=== PATIENT | female | born 1995 | race Hispanic/Latino ===

== ENCOUNTER 2019-07-07 15:04 | Emergency (ER) | payer BC, SELFPAY ==
[2019-07-07 15:47] LABS: Urine Blood 3+ (NEG); Urine Glucose NEGATIVE (NEG); Urine Protein 1+ (NEG); Urine pH 6.5 (5.0-7.0)
[2019-07-07 16:01] LABS: Barbiturates NEGATIVE (NEGATIVE); Benzodiazepines NEGATIVE (NEGATIVE); Cocaine NEGATIVE (NEGATIVE); METHAMPHETAM NEGATIVE (NEGATIVE); Methadone NEGATIVE (NEGATIVE); Opiates NEGATIVE (NEGATIVE); Phencyclidine NEGATIVE (NEGATIVE); THC Cannibis POSITIVE (NEGATIVE)
[2019-07-07] MEDS ORDERED: FAMOTIDINE 20 MG/2 ML VIAL IV ONE (16:15)
[2019-07-07] MEDS ORDERED: LORazepam 2 MG/ML VIAL ONE (16:15)
[2019-07-07] MEDS ORDERED: NA CHLORIDE 0.9% 2,000 ML ONE (16:15)
[2019-07-07] MEDS ORDERED: ONDANSETRON 4 MG/2 ML VIAL ONE (16:15)
[2019-07-07 16:50] LABS: Absolute Lymphocytes (CBC) 1.3 K/uL (0.7-4.9); Basophils % 0.3 % (0-1.3); Hematocrit 40.9 % (36.0-45.0); Lymphocytes % 7.7 % (15.3-44.8); MPV 8.7 fL (7.6-11.3); RBC Red Blood Cell Count 4.55 M/uL (3.86-4.86)
[2019-07-07 17:07] LABS: Albumin 4.2 g/dL (3.4-5.0); Bilirubin Direct 0.2 mg/dL (0-0.2); Bilirubin Total 0.8 mg/dL (0.2-1.0); Potassium 3.6 mmol/L (3.5-5.1); Protein, Total 8.6 g/dL (6.4-8.2)
[2019-07-07 17:25] LABS: Blood Morphology Comment NOT SEEN (NOT SEEN); Platelet Estimate ADEQ; White Blood Cell Scan OK
--- NOTE | 2019-07-07 17:51 | RAD REPORT ---
EXAM DESCRIPTION: CTAbdomen Pelvis W Contrast - 07/07/2019 5:38 pm CLINICAL HISTORY: Abdominal pain. ABD PAIN COMPARISON: No comparisons TECHNIQUE: Biphasic CT imaging of the abdomen and pelvis was performed with 100 ml non-ionic IV cont rast. All CT scans are performed using dose optimization technique as appropriate and may include automated exposure control or mA/KV adjustment according to patient size. FINDINGS: The lung bases are clear. The liver, spleen, pancreas, adrenal glands and kidneys are within normal limits. No bowel obstruction, free air, free fluid or abscess. The appendix is normal. No evidence of signi ficant lymphadenopathy. No suspicious bony findings. IMPRESSION: No acute intra-abdominal or pelvic finding.
--- NOTE | 2019-07-07 18:20 | RAD REPORT ---
EXAM DESCRIPTION: RAD - Chest Single View - 07/07/2019 6:11 pm CLINICAL HISTORY: ABDOMINAL DISTENTION Chest pain. COMPARISON: No comparisons FINDINGS: Portable technique limits examination quality. The lungs are grossly clear. The heart is normal in size. No displaced fractures. IMPRESSION: No acute intrathoracic process suspected.
--- NOTE | 2019-07-07 18:33 | EDPHYS ---
Physician Documentation [facility] Name: Johanne Carter Age: 24 yrs Sex: Female : 1995 Arrival Date: 07/07/2019 Time: 15:07 Bed 23 Private MD: ED Physician Jean Pierre HPI: 15:29 This 24 yrs old Female presents to ER via Ambulatory with complaints of mele Vomiting. 15:29 The patient presents to the emergency department with nausea. Onset: The emle symptoms/episode began/occurred just prior to arrival, this morning. Possible causes: unknown. The symptoms are aggravated by nothing. The symptoms are alleviated by nothing. Associated signs and symptoms: The patient has no apparent associated signs or symptoms. Severity of symptoms: At their worst the symptoms were mild moderate in the emergency department the symptoms are unchanged. The patient has not experienced similar symptoms in the past. 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 - Social history:: Smoking status: Patient/guardian denies using tobacco. - Family history:: not pertinent. ROS: 15:29 Constitutional: Negative for fever, chills, and weight loss, Eyes: Negative for injury, mele pain, redness, and discharge, ENT: Negative for injury, pain, and discharge, Neck: Negative for injury, pain, and swelling, Cardiovascular: Negative for chest pain, palpitations, and edema, Respiratory: Negative for shortness of breath, cough, wheezing, and pleuritic chest pain, Back: Negative for injury and pain, : Negative for injury, bleeding, discharge, and swelling, MS/Extremity: Negative for injury and deformity, Skin: Negative for injury, rash, and discoloration, Neuro: Negative for headache, weakness, numbness, tingling, and seizure, Psych: Negative for depression, anxiety, suicide ideation, homicidal ideation, and hallucinations, Allergy/Immunology: Negative for hives, rash, and allergies, Endocrine: Negative for neck swelling, polydipsia, polyuria, polyphagia, and marked weight changes, Hematologic/Lymphatic: Negative for swollen nodes, abnormal bleeding, and unusual bruising. 15:29 Abdomen/GI: Positive for abdominal pain, nausea and vomiting. Exam: 15:29 Constitutional: This is a well developed, well nourished patient who is awake, alert, mele and in no acute distress. Head/Face: Normocephalic, atraumatic. Eyes: Pupils equal round and reactive to light, extra-ocular motions intact. Lids and lashes normal. Conjunctiva and sclera are non-icteric and not injected. Cornea within normal limits. Periorbital areas with no swelling, redness, or edema. ENT: Nares patent. No nasal discharge, no septal abnormalities noted. Tympanic membranes are normal and external auditory canals are clear. Oropharynx with no redness, swelling, or masses, exudates, or evidence of obstruction, uvula midline. Mucous membranes moist. Neck: Trachea midline, no thyromegaly or masses palpated, and no cervical lymphadenopathy. Supple, full range of motion without nuchal rigidity, or vertebral point tenderness. No Meningismus. Chest/axilla: Normal chest wall appearance and motion. Nontender with no deformity. No lesions are appreciated. Cardiovascular: Regular rate and rhythm with a normal S1 and S2. No gallops, murmurs, or rubs. Normal PMI, no JVD. No pulse deficits. Respiratory: Lungs have equal breath sounds bilaterally, clear to auscultation and percussion. No rales, rhonchi or wheezes noted. No increased work of breathing, no retractions or nasal flaring. Back: No spinal tenderness. No costovertebral tenderness. Full range of motion. Female : Normal external genitalia. Skin: Warm, dry with normal turgor. Normal color with no rashes, no lesions, and no evidence of cellulitis. MS/ Extremity: Pulses equal, no cyanosis. Neurovascular intact. Full, normal range of motion. Neuro: Awake and alert, GCS 15, oriented to person, place, time, and situation. Cranial nerves II-XII grossly intact. Motor strength 5/5 in all extremities. Sensory grossly intact. Cerebellar exam normal. Normal gait. Psych: Awake, alert, with orientation to person, place and time. Behavior, mood, and affect are within normal limits. 15:29 Abdomen/GI: Inspection: abdomen appears normal, Bowel sounds: normal, Palpation: mild abdominal tenderness, in all quadrants, Liver: no appreciated palpable abnormalities, Hernia: not appreciated. Vital Signs: 15:23 BP 122 / 83; Pulse 69; Resp 16; Temp 97.9; Pulse Ox 100% on R/A; Weight 63.5 kg (R); aj1 Height 5 ft. 2 in. (157.48 cm) (R); Pain 10/10; 16:30 BP 108 / 67; Pulse 54; Resp 18; Pulse Ox 100% ; aj1 17:16 BP 111 / 70; Pulse 65; Resp 16; Pulse Ox 100% on 2 lpm NC; aj1 17:49 BP 110 / 63; Pulse 66; Resp 16; Pulse Ox 100% on R/A; 1 18:45 BP 112 / 68; Pulse 62; Resp 16; Pulse Ox 100% on R/A; aj1 19:45 BP 116 / 82; Pulse 70; Resp 16; Pulse Ox 98% on R/A; [facility] 15:23 Body Mass Index 25.61 (63.50 kg, 157.48 cm) [facility] MDM: 15:18 Patient medically screened. [facility] 15:31 Data reviewed: vital signs, nurses notes, lab test result(s). [facility] 15:28 Order name: Basic Metabolic Panel; Complete Time: 17:13 [facility] 15:28 Order name: CBC with Diff; Complete Time: 18:32 [facility] 15:28 Order name: Creatinine for Radiology; Complete Time: 17:13 [facility] 15:28 Order name: Hepatic Function; Complete Time: 17:13 [facility] 15:28 Order name: Lipase; Complete Time: 17:13 [facility] 15:28 Order name: UDS; Complete Time: 16:16 [facility] 15:33 Order name: Urine Dipstick--Ancillary (enter results); Complete Time: 15:55 [facility] 15:33 Order name: Urine --Ancillary (enter results); Complete Time: 15:55 [facility] 17:13 Order name: Chest Single View XRAY; Complete Time: 18:32 [facility] 17:13 Order name: CT Abd/Pelvis - IV Contrast Only; Complete Time: 18:32 [facility] 17:26 Order name: CBC Smear Scan; Complete Time: 18:32 [facility] 15:28 Order name: IV Saline Lock; Complete Time: 16:04 [facility] 15:28 Order name: Labs collected and sent; Complete Time: 17:22 [facility] 16:02 Order name: Labs - recollect needed; Complete Time: 16:57 dh4 Administered Medications: 16:58 Drug: NS 0.9% 1000 ml Route: IV; Rate: 1 bolus; Site: left antecubital; aj1 19:53 Follow up: IV Status: Completed infusion; IV Intake: 1000ml aj1 16:59 Drug: Ativan 1 mg Route: IVP; Site: left antecubital; aj1 19:54 Follow up: Response: No adverse reaction; Anxiety decreased aj1 16:59 Drug: Zofran (Ondansetron) 4 mg Route: IVP; Site: left antecubital; aj1 19:54 Follow up: Response: No adverse reaction aj1 16:59 Drug: Pepcid 20 mg Route: IVP; Site: left antecubital; aj1 19:54 Follow up: Response: No adverse reaction aj1 17:00 Drug: NS 0.9% 1000 ml Route: IV; Rate: 1 bolus; Site: left antecubital; aj1 19:54 Follow up: IV Status: Completed infusion; IV Intake: 1000ml aj Disposition: 07/07/19 18:32 Discharged to Home. Impression: Vomiting, Anxiety disorder, unspecified, Elevated white blood cell count, Abdominal tenderness. - Condition is Stable. - Discharge Instructions: Panic Attacks, Nausea and Vomiting, Adult, Nausea and Vomiting, Adult, [id number]-th-[id number], Panic Attacks, [id number]-ir-[id number]. - Prescriptions for Xanax 0.5 mg Oral Tablet - take 1 tablet by ORAL route every 8 hours As needed; 20 tablet. Zofran 4 mg Oral Tablet - take 1 tablet by ORAL route every 12 hours As needed; 20 tablet. Pepcid 20 mg Oral Tablet - take 1 tablet by ORAL route every 12 hours for 10 days; 20 tablet. Bentyl 20 mg Oral Tablet - take 1 tablet by ORAL route every 6 hours As needed; 20 tablet. - Medication Reconciliation Form, Thank You Letter, Antibiotic Education, Prescription Opioid Use form. - Follow up: Private Physician; When: 2 - 3 days; Reason: Recheck today's complaints, Continuance of care, Re-evaluation by your physician. - Problem is new. - Symptoms have improved. Signatures: Dispatcher [employer] EDTeresa Mckeon RN RN aj1 Jean Pierre MD MD cha Huhn, Donald 4 Corrections: (The following items were deleted from the chart) 18:33 18:32 07/07/2019 18:32 Discharged to Home. Impression: Vomiting; Anxiety disorder, mele unspecified. Condition is Stable. Discharge Instructions: Panic Attacks, Nausea and Vomiting, Adult, Nausea and Vomiting, Adult, Pswn-wo-Cplh, Panic Attacks, Cspr-th-[id number]. Prescriptions for Benadryl 25 mg Oral Capsule - take 1 capsule by ORAL route every 6 hours As needed; 30 tablet, Xanax 0.5 mg Oral Tablet - take 1 tablet by ORAL route every 8 hours As needed; 20 tablet, Zofran 4 mg Oral Tablet - take 1 tablet by ORAL route every 12 hours As needed; 20 tablet, Pepcid 20 mg Oral Tablet - take 1 tablet by ORAL route every 12 hours for 10 days; 20 tablet. and Forms are Medication Reconciliation Form, Thank You Letter, Antibiotic Education, Prescription Opioid Use. Follow up: Private Physician; When: 2 - 3 days; Reason: Recheck today's complaints, Continuance of care, Re-evaluation by your physician. Problem is new. Symptoms have improved. mele 20:10 18:33 07/07/2019 18:32 Discharged to Home. Impression: Vomiting; Anxiety disorder, aj1 unspecified; Elevated white blood cell count; Abdominal tenderness. Condition is Stable. Discharge Instructions: Panic Attacks, Nausea and Vomiting, Adult, Nausea and Vomiting, Adult, [id number], Panic Attacks, Bwxq-tx-[id number]. Prescriptions for Benadryl 25 mg Oral Capsule - take 1 capsule by ORAL route every 6 hours As needed; 30 tablet, Xanax 0.5 mg Oral Tablet - take 1 tablet by ORAL route every 8 hours As needed; 20 tablet, Zofran 4 mg Oral Tablet - take 1 tablet by ORAL route every 12 hours As needed; 20 tablet, Pepcid 20 mg Oral Tablet - take 1 tablet by ORAL route every 12 hours for 10 days; 20 tablet. and Forms are Medication Reconciliation Form, Thank You Letter, Antibiotic Education, Prescription Opioid Use. Follow up: Private Physician; When: 2 - 3 days; Reason: Recheck today's complaints, Continuance of care, Re-evaluation by your physician. Problem is new. Symptoms have improved. mele
--- NOTE | 2019-07-07 18:33 | ER ---
Nurse's Notes [facility] Name: Johanne Carter Age: 24 yrs Sex: Female : 1995 Arrival Date: 07/07/2019 Time: 15:07 Bed 23 Private MD: Diagnosis: Vomiting;Anxiety disorder, unspecified;Elevated white blood cell count;Abdominal tenderness Presentation: 15:23 Chief complaint: Patient states: She was on her period yesterday, then she started aj1 vomiting at 6:00 and her period stopped, states that she has been vomiting since then, and she thinks the last time she vomited blood and she pooped blood once and she has had 3 panic attacks today. Also reports abdominal pain that comes and goes and hurts in different places in her abdomen when it comes. Coronavirus screen: The patient has NOT traveled to [place] in the past 14 days. Ebola Screen: Patient denies travel to an Ebola-affected area in the 21 days before illness onset. Initial Sepsis Screen: Does the patient meet any 2 criteria? No. Patient's initial sepsis screen is negative. Does the patient have a suspected source of infection? Yes: Acute abdominal pain. Risk Assessment: Do you want to hurt yourself or someone else? Patient reports no desire to harm self or others. 15:23 Method Of Arrival: Ambulatory aj1 15:23 Acuity: NATALIYA 3 aj1 Triage Assessment: 15:26 General: Appears uncomfortable, Behavior is anxious, restless. Pain: Complains of pain aj1 in abdomen Pain currently is 10 out of 10 on a pain scale. GI: Reports lower abdominal pain, upper abdominal pain, nausea, vomiting. 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 - Social history:: Smoking status: Patient/guardian denies using tobacco. - Family history:: not pertinent. Screenin:27 Abuse screen: Denies threats or abuse. Denies injuries from another. Nutritional aj1 screening: No deficits noted. Tuberculosis screening: No symptoms or risk factors identified. 20:07 Fall Risk None identified. aj1 Assessment: 15:27 General: Appears uncomfortable, Behavior is anxious. Pain: Complains of pain in abdomen aj1 Pain does not radiate. Pain currently is 10 out of 10 on a pain scale. Neuro: Level of Consciousness is awake, alert, obeys commands, Oriented to person, place, time, situation. Cardiovascular: Patient's skin is warm and dry. Respiratory: Airway is patent Respiratory effort is even, unlabored, Respiratory pattern is regular, symmetrical. GI: Abdomen is flat, non-distended, Bowel sounds present X 4 quads. Abd is soft X 4 quads Abdomen is tender to palpation X 4 quads. Reports nausea, vomiting. : No signs and/or symptoms were reported regarding the genitourinary system. EENT: No signs and/or symptoms were reported regarding the EENT system. Derm: No signs and/or symptoms reported regarding the dermatologic system. Skin is pink, warm \T\ dry. normal. Musculoskeletal: No signs and/or symptoms reported regarding the musculoskeletal system. Circulation, motion, and sensation intact. 16:30 Reassessment: Patient appears in no apparent distress at this time. No changes from aj1 previously documented assessment. Patient and/or family updated on plan of care and expected duration. Pain level reassessed. Patient is alert, oriented x 3, equal unlabored respirations, skin warm/dry/pink. 17:17 Reassessment: Patient appears in no apparent distress at this time. No changes from aj1 previously documented assessment. Patient and/or family updated on plan of care and expected duration. Pain level reassessed. Patient is alert, oriented x 3, equal unlabored respirations, skin warm/dry/pink. 17:49 Reassessment: Patient appears in no apparent distress at this time. No changes from aj1 previously documented assessment. Patient and/or family updated on plan of care and expected duration. Pain level reassessed. Patient is alert, oriented x 3, equal unlabored respirations, skin warm/dry/pink. 18:50 Reassessment: Patient and/or family updated on plan of care and expected duration. Pain aj1 level reassessed. General: Appears in no apparent distress. comfortable, Behavior is calm, cooperative, appropriate for age. Pain: Denies pain. Neuro: Level of Consciousness is awake, alert, obeys commands, Oriented to person, place, time, situation. Cardiovascular: Patient's skin is warm and dry. Respiratory: Airway is patent Respiratory effort is even, unlabored, Respiratory pattern is regular, symmetrical. Derm: Skin is pink, warm \T\ dry. normal. Musculoskeletal: Circulation, motion, and sensation intact. 19:56 Reassessment: Patient appears in no apparent distress at this time. No changes from aj1 previously documented assessment. Patient and/or family updated on plan of care and expected duration. Pain level reassessed. Patient is alert, oriented x 3, equal unlabored respirations, skin warm/dry/pink. Vital Signs: 15:23 BP 122 / 83; Pulse 69; Resp 16; Temp 97.9; Pulse Ox 100% on R/A; Weight 63.5 kg (R); aj1 Height 5 ft. 2 in. (157.48 cm) (R); Pain 10/10; 16:30 BP 108 / 67; Pulse 54; Resp 18; Pulse Ox 100% ; aj1 17:16 BP 111 / 70; Pulse 65; Resp 16; Pulse Ox 100% on 2 lpm NC; aj1 17:49 BP 110 / 63; Pulse 66; Resp 16; Pulse Ox 100% on R/A; aj1 18:45 BP 112 / 68; Pulse 62; Resp 16; Pulse Ox 100% on R/A; aj1 19:45 BP 116 / 82; Pulse 70; Resp 16; Pulse Ox 98% on R/A; aj1 15:23 Body Mass Index 25.61 (63.50 kg, 157.48 cm) aj1 ED Course: 15:07 Patient arrived in ED. mr 15:18 Jean Pierre MD is Attending Physician. mele 15:23 Teresa Sanchez, BRANDY is Primary Nurse. aj1 15:25 Triage completed. aj1 15:26 Arm band placed on. aj1 15:27 Patient has correct armband on for positive identification. Bed in low position. Call [facility] light in reach. Side rails up X 1. 15:27 No provider procedures requiring assistance completed. aj1 16:03 Inserted saline lock: 22 gauge in left upper arm, using aseptic technique. jb1 17:37 CT completed. Patient tolerated procedure well. Patient moved to radiology. mw3 17:38 CT Abd/Pelvis - IV Contrast Only In Process Unspecified. EDMS 18:12 Chest Single View XRAY In Process Unspecified. EDMS 19:55 IV discontinued, intact, bleeding controlled, No redness/swelling at site. Pressure aj1 dressing applied. Administered Medications: 16:58 Drug: NS 0.9% 1000 ml Route: IV; Rate: 1 bolus; Site: left antecubital; aj1 19:53 Follow up: IV Status: Completed infusion; IV Intake: 1000ml aj1 16:59 Drug: Ativan 1 mg Route: IVP; Site: left antecubital; aj1 19:54 Follow up: Response: No adverse reaction; Anxiety decreased aj1 16:59 Drug: Zofran (Ondansetron) 4 mg Route: IVP; Site: left antecubital; aj1 19:54 Follow up: Response: No adverse reaction aj1 16:59 Drug: Pepcid 20 mg Route: IVP; Site: left antecubital; aj1 19:54 Follow up: Response: No adverse reaction aj1 17:00 Drug: NS 0.9% 1000 ml Route: IV; Rate: 1 bolus; Site: left antecubital; aj1 19:54 Follow up: IV Status: Completed infusion; IV Intake: 1000ml aj1 Intake: 19:53 IV: 1000ml; Total: 1000ml. aj1 19:54 IV: 1000ml; Total: 2000ml. aj1 Outcome: 18:32 Discharge ordered by . mele 20:09 Discharged to home ambulatory. aj1 20:09 Condition: good 20:09 Discharge instructions given to patient, Instructed on discharge instructions, follow up and referral plans. no drinking with medication, no driving heavy equipment, medication usage, Demonstrated understanding of instructions, follow-up care, medications, Prescriptions given X 4. 20:10 Patient left the ED. aj1 Signatures: Dispatcher [employer] EDGary Cook jb1 Teresa Sanchez, BRANDY RN aj1 Jean Pierre MD MD cha Rivera, Tsering Lincoln mw3
[2019-07-07 20:18] VITALS: TEMP 97.9
[2019-07-07 20:25] VITALS: BP 116/82; O2SAT 98
[2019-07-07] MEDS ORDERED: NA CHLORIDE 0.9% 0 ML IV ONE ×2 (21:44→21:48)
[2019-07-07] MEDS ORDERED: PROMETHAZINE INJ 25 MG/ML AMP ONE ×2 (21:44→21:47)
== END 2019-07-07 20:10 | disposition home or self-care (01) ==
LOC: ER 15:04
DX: F41.9 Anxiety disorder, unspecified (principal); D72.829 Elevated white blood cell count, unspecified; R10.819 Abdominal tenderness, unspecified site; Z91.018 Allergy to other foods
CPT/HCPCS: 96361; 85025; 80048; 36415; 81025; 80076; 80307 ×8; 81003; 83690; 74177; 71045; 96375; 96374; 99284; Q9967; J7030; J2405; J2550

== ENCOUNTER 2020-09-13 10:04 | Inpatient (IN) | payer BC, OTHER ==
[2020-09-13 10:37] VITALS: BMI 37.1
[2020-09-13] MEDS ORDERED: PROMETHAZINE INJ 25 MG/ML AMP IM PRN (10:40)
[2020-09-13] MEDS ORDERED: Ringers Lactate 1,000 ML IV PRN (10:40)
[2020-09-13] MEDS ORDERED: BUTORPHANOL 1 MG/ML INJ IV PRN (10:40)
[2020-09-13] MEDS ORDERED: CARBOPROST TROME 250 MCG/ML IM PRN ×2 (10:40→17:46)
[2020-09-13] MEDS ORDERED: METHYLERGONOVINE 0.2MG/ML AMP IM PRN (10:40)
[2020-09-13] MEDS ORDERED: OXYTOCIN/LR 20 UNIT/1,000 ML BAG IV ONE (10:49)
[2020-09-13] MEDS ORDERED: OXYTOCIN/LR 20 UNIT/1,000 ML BAG IV SCH ×2 (11:00→18:00)
[2020-09-13] MEDS ORDERED: LR IV SCH (11:00)
[2020-09-13] MEDS ORDERED: Ringers Lactate 1,000 ML IV SCH (11:00)
[2020-09-13] MEDS ORDERED: OXYTOCIN IV SCH (11:00)
[2020-09-13 11:14] LABS: Urine Appearance CLOUDY (Clear); Urine Bilirubin NEGATIVE (Negataive); Urine Blood 2+ (Negative); Urine Color YELLOW (Yellow); Urine Glucose NEGATIVE (Negative); Urine Microscopic Reflex ORDER UMIC; Urine Protein TRACE (Negative); Urine Specific Gravity >=1.030 (1.005-1.030); Urine Urobilinogen 0.2 mg/dL (0.2-1.0)
[2020-09-13 11:21] LABS: Urine Bacteria >50 /HPF (<20); Urine RBC <5 /HPF (NONE SEEN); Urine Yeast MANY (NONE SEEN); Urine Yeast with Hyphae PRESENT
[2020-09-13 11:28] LABS: Absolute Lymphocytes (CBC) 2.6 K/uL (0.7-4.9); Basophils % 0.4 % (0-1.3); Hematocrit 35.2 % (36.0-45.0); Lymphocytes % 15.9 % (15.3-44.8); MPV 9.7 fL (7.6-11.3); RBC Red Blood Cell Count 3.84 M/uL (3.86-4.86)
[2020-09-13 12:03] LABS: Blood Morphology Comment NOT SEEN (NOT SEEN); Platelet Estimate ADEQ; White Blood Cell Scan OK (OK)
[2020-09-13] MEDS ORDERED: ROPIVACAINE HCL 0.2% 20ML AMP EP ONE ×2 (12:34→13:22)
[2020-09-13] MEDS ORDERED: FENTANYL CITR 100 MCG/2 ML IV ONE (12:36)
[2020-09-13] MEDS ORDERED: HYDRALAZINE HCL 20 MG/ML VIAL IV ONE (12:37)
[2020-09-13] MEDS ORDERED: MAGNESIUM SULF/STERILE WATER 1,000 ML IV SCH (13:00)
[2020-09-13] MEDS ORDERED: LIDOCAINE 1% MPF 30 ML VIAL ONE (17:02)
--- NOTE | 2020-09-13 17:04 | PREOPHP ---
Date of Admission: 09/13/2020 History Of Present Illness: 25-year-old primigravida 39 weeks 5 days, kishore every minute and a half or so. She is 2.5 cm, 50% effaced, vertex, -1 station, well applied. Membranes stretched, but I can still feel them. Vital signs stable. We will admit for stabilization and delivery. Labor ta lk given. Family History: Noncontributory. No previous surgeries. Allergies: NO ALLERGIES. Medications: No medications prior to admission other than vitamins and iron. Review of Systems: Noncontributory. Physical Examination: HEENT: Clear. Pupils equal, round, and reactive to light and accommodation. Conjunctivae well perf used. No oral, lingual, or buccal lesions. Chest and Lungs: Clear. Heart: Without murmurs, thrills, heaves, or rubs. Breasts: Without masses on previous visits. Abdomen: Term size. Baby is vertex, 2.5 cm, 50%, well applied. Extremities: Clear without edema, cyanosis, or clubbing. Primigravida 39 weeks 5 days, and in early labor. HERNESTO/LESLI Voice ID: [id number]
--- NOTE | 2020-09-13 17:13 | PN ---
The patient is on light Pitocin, kishore regularly. Baby looks good. She is about 3 cm, still p osterior. Rupture of membranes, light meconium noted. Full discussion with patient and . Jerson sanchez is a very high strung individual. I think that when she starts becoming uncomfortable at the point she requests medication, we will probably start with Stadol and then I assume she will get an epidur al as the labor progresses, but that is up to her of course. Anticipate delivery sometime later tatum siddiqui Labor talk has been given. HERNESTO/LESLI Voice ID: [id number] Report ID: [id number]
[2020-09-13] MEDS ORDERED: ACETAMINOPHEN 500 MG TAB PO PRN (17:46)
[2020-09-13] MEDS ORDERED: Oxycodone HCl/Acetaminophen 1 TAB TAB PO PRN ×2 (17:46)
[2020-09-13] MEDS ORDERED: DIPHENHYDRAMINE 25 MG TAB/CAP PO PRN (17:46)
[2020-09-13] MEDS ORDERED: IBUPROFEN 200 MG TAB PO PRN (17:46)
[2020-09-13] MEDS ORDERED: BISACODYL 10 MG RECTAL SUPP PR PRN (17:46)
[2020-09-13] MEDS ORDERED: DOCUSATE NA/SENNA CONC 1 TAB PO PRN (17:46)
--- NOTE | 2020-09-13 20:34 | PN ---
Johanne Carter is a 25-year-old primigravida, had elevations of her systolic blood pressure to 16 5, diastolic to about 100, trace protein, has mild edema, no ARC TRIMMER symptoms, but was started on magnesi um sulfate 4 g loading dose, 2 g an hour maintenance dose, had 1 mg of Stadol IV, 25 mg of Phenergan IM, but then reported her pain scale was 10/10 and epidural anesthesia has been started. She is prof oundly numb and cannot feel contractions or move her legs adequately. Therefore, we have returned ba ck to maintenance dose from 12 to 10 and down to 8 and she is still completely numb. She was checked about 20 minutes ago and noted to be 4 and now she is 8.5 with edematous anterior lip and bloody ricarda w. Anticipate more rapid progress at this point, making preparations for delivery. HERNESTO/LESLI Voice ID: [id number] Report ID: [id number]
--- NOTE | 2020-09-13 20:52 | OP ---
Surgeon: Paolo Ventura MD Johanne Carter is a 25-year-old primigravida at 39 weeks 5 days, came in early labor, started on Pitocin augmentation. Beta strep negative. COVID negative. Rh positive. Immune to Rubella. Recei stella Stadol 1 mg IV, Phenergan 25 mg IM at 3+ cm, rated her pain scale 10/10, requested and received e pidural anesthesia. Rupture of membranes at 2.5 to 3 cm and light meconium noted. Baby showed no pr oblems during the labor. Second stage of about 30 minutes. Spontaneous vaginal delivery of a 7 poun ds 11 ounces male infant. Thorough suction of nares and oropharynx with DeLee mucus suction trap and bulb syringe. No suspicion of aspiration. Apgars 9 and 9. Second-degree laceration simulating epi siotomy repaired with 2-0 chromic 2 [id number] stitches on the right side of the introitus. It is a small little mucosal tear area. Mild [place] delivery of placenta, which is stained with meconiu m, will be saved for 24 hours, but baby looks good. Mild uterine hypertonus. Hemabate given as the patient developed mild preeclampsia during the labor, was given 4 g of magnesium sulfate 2 g an hour maintenance dose. Blood pressures have come down though into the normal range. We will discontinue the magnesium sulfate and start her on phenobarbital for the remainder of the hospital stay. Estimat ed blood loss 400 to 425 cc. Tolerated all procedures well. Final Diagnoses: Term intrauterine at 39 weeks 5 days. Vaginal delivery. Epidural anesth esia. Preeclampsia - mild. Mild uterine hypotonus. Meconium staining. No suspicion of aspiration. NBC/MODL Voice ID: [id number] Report ID: [id number]
[2020-09-14] MEDS: PHENOBARBITAL 32.4 MG TABLET PO SCH ×4 (00:30→12:30)
--- NOTE | 2020-09-14 10:53 | DS ---
Hospital Course: A 25-year-old, primigravida, at 39 weeks 5 days, came in active labor with rupture of membranes, noted to have mild meconium staining. Thorough suctioning of nares and oropharynx with DeLee mucus suction trap at time of delivery. No suspicion of aspiration. Received 1 mg of Stadol and 25 mg of Phenergan initially, then epidural anesthesia. Second stage of about 30 minutes. Spont aneous vaginal delivery, 7 pounds 11 ounces male infant, Apgars 9 and 9. Midline second-degree lacer ation simulating episiotomy repaired with 2-0 chromic. The patient is Rh positive, immune to rubella , negative Strep, negative COVID. afebrile, ambulating and voiding. Lochia is normal. S he will be dismissed later today to report back to my office in 6 weeks for followup to report any te mperature elevation of 100 degrees or greater, severe pain, heavy bleeding, or any other type of abno rmalities. No post epidural problems. We discussed Tdap numerous times during the . Final Diagnoses: Term intrauterine at 39 weeks 5 days, vaginal delivery, meconium staining , no suspicion of aspiration, epidural anesthesia, mild uterine hypotonus. HERNESTO/LESLI Voice ID: [id number] Report ID: [id number]
[2020-09-14 15:56] VITALS: BP 122/74; TEMP 97.3
[2020-09-14] MEDS ORDERED: Ringers Lactate 1,000 ML IV ONE (20:40)
[2020-09-14 23:01] LABS: RPR (Rapid Plasma Reagin) NON-REACT (NON-REACT)
[2020-09-16 18:06] LABS: HBsAG Nonreactive (Nonreactive)
== END 2020-09-14 19:15 | disposition home or self-care (01) | DRG 807 ==
LOC: L&D 10:04 → 2ND-WC 10:15
PROVIDERS: ADMIT Specialist; ATTEND Specialist
PROC: 10907ZC Drainage of Amniotic Fluid, Therapeutic from Products of Conception, Via Natural or Artificial Opening (ICD-10-PCS; principal; 2020-09-13)
PROC: 10E0XZZ Delivery of Products of Conception, External Approach (ICD-10-PCS; 2020-09-13)
PROC: 0KQM0ZZ Repair Perineum Muscle, Open Approach (ICD-10-PCS; 2020-09-13)
DX: O14.04 Mild to moderate pre-eclampsia, complicating childbirth (principal); Z37.0 Single live birth; O62.2 Other uterine inertia; O70.1 Second degree perineal laceration during delivery; Z3A.39 39 weeks gestation of pregnancy; Z20.822 Contact with and (suspected) exposure to COVID-19
CPT/HCPCS: 36415; 81003; 81015; 85025; 86592; 86901; 87086; 87088; 87340; J0595; J2550; J2590; J3010; J3475; J7120; U0003

== ENCOUNTER 2021-10-11 09:58 | Emergency (ER) | payer BC, OTHER ==
[2021-10-11] MEDS ORDERED: ONDANSETRON 4 MG/2 ML VIAL ONE (10:34)
[2021-10-11] MEDS ORDERED: NA CHLORIDE 0.9% 1,000 ML ONE (10:35)
[2021-10-11] MEDS ORDERED: KETOROLAC 30 MG/ML INJ ONE (10:35)
[2021-10-11 10:39] LABS: Urine Blood 2+ (Negative); Urine Glucose Negative (Negative); Urine Protein Negative (Negative); Urine Specific Gravity >=1.030 (1.005-1.030); Urine pH 5.5 (5.0-7.0)
[2021-10-11 10:57] LABS: Absolute Lymphocytes (CBC) 3.5 K/uL (0.7-4.9); Hematocrit 36.5 % (36.0-45.0); Lymphocytes % 30.2 % (15.3-44.8); MPV 7.6 fL (7.6-11.3); RBC Red Blood Cell Count 4.17 M/uL (3.86-4.86)
[2021-10-11 11:12] LABS: Albumin 3.6 g/dL (3.4-5.0); Bilirubin Total 0.3 mg/dL (0.2-1.0); Potassium 3.8 mmol/L (3.5-5.1)
--- NOTE | 2021-10-11 11:27 | RAD REPORT ---
EXAM DESCRIPTION: RAD - Chest Pa And Lat (2 Views) - 10/11/2021 10:59 am CLINICAL HISTORY: CHEST PAIN Chest pain. COMPARISON: Chest Single View dated 07/07/2019 FINDINGS: The lungs are clear. The heart is normal in size. No displaced fractures. IMPRESSION: No acute or concerning finding suspected.
--- NOTE | 2021-10-11 11:42 | RAD REPORT ---
EXAM DESCRIPTION: CT - Chest For Pe Angio - 10/11/2021 11:32 am CLINICAL HISTORY: Chest pain. cp COMPARISON: No comparisons TECHNIQUE: CT angiogram of the pulmonary arteries was performed with MIP. All CT scans are performed using dose optimization technique as appropriate and may include automated exposure control or mA/KV adjustment according to patient size. FINDINGS: No evidence of pulmonary thromboembolism. No acute aortic finding demonstrated. The lungs are clear. No significant pericardial or pleural fluid. No concerning bony finding. IMPRESSION: No evidence of pulmonary thromboembolism. No acute lung findings.
--- NOTE | 2021-10-11 11:58 | ER ---
Nurse's Notes [facility] Name: Johanne Carter Age: 26 yrs Sex: Female : 1995 Arrival Date: 10/11/2021 Time: 10:00 Bed 15 Private MD: Diagnosis: Chest pain on breathing Presentation: 10/11 10:11 Chief complaint: Patient states: chest pain that began last night. Worse when taking a ss deep breath. Denies cough/ fever/ feeling ill. Coronavirus screen: Client denies travel out of the [place] in the last 14 days. Ebola Screen: Patient denies exposure to infectious person. Patient denies travel to an Ebola-affected area in the 21 days before illness onset. Initial Sepsis Screen: Does the patient meet any 2 criteria? No. Patient's initial sepsis screen is negative. Does the patient have a suspected source of infection? No. Patient's initial sepsis screen is negative. Risk Assessment: Do you want to hurt yourself or someone else? Patient reports no desire to harm self or others. Onset of symptoms was October 10, 2021. 10:11 Method Of Arrival: Ambulatory ss 10:11 Acuity: NATALIYA 3 ss Historical: - Allergies: 10:12 No Known Allergies; ss - Home Meds: 10:12 None [Active]; ss - PMHx: 10:12 None; ss - PSHx: 10:12 None; ss - Immunization history:: Client reports having NOT received the Covid vaccine. - Social history:: Smoking status: Patient denies any tobacco usage or history of. - Family history:: not pertinent. Screenin:20 Abuse screen: Denies threats or abuse. jh6 10:20 Abuse screen: Denies threats or abuse. Denies injuries from another. Nutritional jh6 screening: No deficits noted. Tuberculosis screening: No symptoms or risk factors identified. Fall Risk None identified. Assessment: 10:20 General: Appears in no apparent distress. Behavior is calm, cooperative. jh6 10:20 Pain: Complains of pain in mid-sternal area Pain does not radiate. Pain currently is 4 jh6 out of 10 on a pain scale. Quality of pain is described as pressure, Pain began suddenly, 1 day ago. Is continuous, Alleviated by nothing. Aggravated by increased activity, repositioning, deep breath. 10:20 Cardiovascular: Reports chest pain, Heart tones present Capillary refill < 3 seconds jh6 Clubbing of nail beds is absent JVD is absent Patient's skin is warm and dry. Pulses are all present. Edema is absent. Rhythm is sinus rhythm Chest pain is described as Pain is 6 out of 10 on a pain scale. quality is pressure, is located in chest wall substernal area radiates none. 10:20 Respiratory: No deficits noted. jh6 11:26 Reassessment: Patient and/or family updated on plan of care and expected duration. Pain jh6 level reassessed. Patient states feeling better. Pain: Pain currently is 3 out of 10 on a pain scale. Vital Signs: 10:11 BP 127 / 77; Pulse 89; Resp 16; Temp 97.6(TE); Pulse Ox 100% on R/A; Weight 63.5 kg; ss Height 5 ft. 2 in. (157.48 cm); 11:05 BP 113 / 84; Pulse 82; Resp 17; Pulse Ox 100% ; Pain 4/10; jh6 12:08 BP 110 / 86; Pulse 80; Resp 17; Temp 97.7(O); Pulse Ox 100% ; Pain 2/10; jh6 10:11 Body Mass Index 25.61 (63.50 kg, 157.48 cm) ED Course: 10:00 Patient arrived in ED. rg4 10:12 Triage completed. ss 10:12 Arm band placed on right wrist. ss 10:16 Jean Pierre MD is Attending Physician. [facility] 10:20 Bed in low position. Call light in reach. Side rails up X 1. jh6 10:20 athletic monitor on. Pulse ox on. NIBP on. jh6 10:22 No provider procedures requiring assistance completed. Inserted saline lock: 20 gauge 6 in right antecubital area, using aseptic technique. Blood collected. 10:32 Esperanza Grace, BRANDY is Primary Nurse. jh6 10:44 Urine --Ancillary (enter results) Sent. eb 10:48 Lab(s) recollected, by me, sent to lab. dh3 11:01 Chest Pa And Lat (2 Views) XRAY In Process Unspecified. EDMS 11:03 Patient moved back from radiology. jh6 11:[address] via wheelchair. jh6 11:34 CT Chest For PE Angio In Process Unspecified. EDWA 11:57 Ed Ba MD is Referral Physician. [facility] 12:08 IV discontinued, intact, bleeding controlled, No redness/swelling at site. Pressure 6 dressing applied. Administered Medications: 10:39 Drug: NS 0.9% 1000 ml Route: IV; Rate: 1 bolus; Site: right antecubital; jh6 10:39 Drug: Ketorolac 30 mg Route: IVP; Site: right antecubital; 6 10:51 Follow up: Response: No adverse reaction 6 10:39 Drug: Zofran (Ondansetron) 4 mg Route: IVP; Site: right antecubital; 6 10:51 Follow up: Response: No adverse reaction [facility] Outcome: 11:57 Discharge ordered by . [facility] 12:09 Discharged to home ambulatory. [facility] 12:09 Condition: improved 12:09 Discharge instructions given to patient, family, Instructed on discharge instructions, follow up and referral plans. Demonstrated understanding of instructions, medications. 12:11 Patient left the ED. [facility] Signatures: Dispatcher [employer] EDWA Jean Pierre MD MD cha Smirch, Shelby, RN RN ss Carola Arroyo 4 Kait Lucero 3 Rosa Rivera Jennifer, RN RN 6 Corrections: (The following items were deleted from the chart) 10:12 10:12 Allergies: mushrooms; ss ss
--- NOTE | 2021-10-11 11:58 | EDPHYS ---
Physician Documentation [facility] Name: Johanne Carter Age: 26 yrs Sex: Female : 1995 Arrival Date: 10/11/2021 Time: 10:00 Bed 15 Private MD: ED Physician Jean Pierre HPI: 10/11 11:01 This 26 yrs old Female presents to ER via Ambulatory with complaints of Chest mele Pain. 11:01 The patient or guardian reports chest pain that is located primarily in the anterior [facility] chest wall. The pain does not radiate. Associated signs and symptoms: The patient has no apparent associated signs or symptoms, Pertinent negatives: shortness of breath. The chest pain is described as aching. Duration: The patient or guardian reports multiple episodes, that wax and wane. Modifying factors: The symptoms are alleviated by remaining still, the symptoms are aggravated by deep breath, movement, palpation of area. Severity of pain: At its worst the pain was mild in the emergency department the pain is unchanged. The patient has not experienced similar symptoms in the past. Historical: - Allergies: 10:12 No Known Allergies; ss - Home Meds: 10:12 None [Active]; ss - PMHx: 10:12 None; ss - PSHx: 10:12 None; ss - Immunization history:: Client reports having NOT received the Covid vaccine. - Social history:: Smoking status: Patient denies any tobacco usage or history of. - Family history:: not pertinent. ROS: 11:01 Constitutional: Negative for fever, chills, and weight loss, Eyes: Negative for injury, mele pain, redness, and discharge, ENT: Negative for injury, pain, and discharge, Neck: Negative for injury, pain, and swelling, Abdomen/GI: Negative for abdominal pain, nausea, vomiting, diarrhea, and constipation, Back: Negative for injury and pain, : Negative for injury, bleeding, discharge, and swelling, MS/Extremity: Negative for injury and deformity, Skin: Negative for injury, rash, and discoloration, Neuro: Negative for headache, weakness, numbness, tingling, and seizure, Psych: Negative for depression, anxiety, suicide ideation, homicidal ideation, and hallucinations, Allergy/Immunology: Negative for hives, rash, and allergies, Endocrine: Negative for neck swelling, polydipsia, polyuria, polyphagia, and marked weight changes, Hematologic/Lymphatic: Negative for swollen nodes, abnormal bleeding, and unusual bruising. 11:01 Cardiovascular: Positive for chest pain, of the chest. 11: Respiratory: Positive for shortness of breath, at rest. Exam: 11: Constitutional: This is a well developed, well nourished patient who is awake, alert, mele and in no acute distress. Head/Face: Normocephalic, atraumatic. Eyes: Pupils equal round and reactive to light, extra-ocular motions intact. Lids and lashes normal. Conjunctiva and sclera are non-icteric and not injected. Cornea within normal limits. Periorbital areas with no swelling, redness, or edema. ENT: Nares patent. No nasal discharge, no septal abnormalities noted. Tympanic membranes are normal and external auditory canals are clear. Oropharynx with no redness, swelling, or masses, exudates, or evidence of obstruction, uvula midline. Mucous membranes moist. Neck: Trachea midline, no thyromegaly or masses palpated, and no cervical lymphadenopathy. Supple, full range of motion without nuchal rigidity, or vertebral point tenderness. No Meningismus. Cardiovascular: Regular rate and rhythm with a normal S1 and S2. No gallops, murmurs, or rubs. Normal PMI, no JVD. No pulse deficits. Respiratory: Lungs have equal breath sounds bilaterally, clear to auscultation and percussion. No rales, rhonchi or wheezes noted. No increased work of breathing, no retractions or nasal flaring. Abdomen/GI: Soft, non-tender, with normal bowel sounds. No distension or tympany. No guarding or rebound. No evidence of tenderness throughout. Back: No spinal tenderness. No costovertebral tenderness. Full range of motion. Skin: Warm, dry with normal turgor. Normal color with no rashes, no lesions, and no evidence of cellulitis. MS/ Extremity: Pulses equal, no cyanosis. Neurovascular intact. Full, normal range of motion. Neuro: Awake and alert, GCS 15, oriented to person, place, time, and situation. Cranial nerves II-XII grossly intact. Motor strength 5/5 in all extremities. Sensory grossly intact. Cerebellar exam normal. Normal gait. Psych: Awake, alert, with orientation to person, place and time. Behavior, mood, and affect are within normal limits. 11:01 Chest/axilla: Inspection: normal, Palpation: tenderness, that is mild, of the mid-sternal area, Axilla: are normal, Breasts: are normal, Lymph nodes: lymphadenopathy is not appreciated. 11:09 ECG was reviewed by the Attending Physician. [facility] Vital Signs: 10:11 BP 127 / 77; Pulse 89; Resp 16; Temp 97.6(TE); Pulse Ox 100% on R/A; Weight 63.5 kg; ss Height 5 ft. 2 in. (157.48 cm); 11:05 BP 113 / 84; Pulse 82; Resp 17; Pulse Ox 100% ; Pain 4/10; jh6 12:08 BP 110 / 86; Pulse 80; Resp 17; Temp 97.7(O); Pulse Ox 100% ; Pain 2/10; jh6 10:11 Body Mass Index 25.61 (63.50 kg, 157.48 cm) ss MDM: 10:16 Patient medically screened. [facility] 11:04 Differential diagnosis: abnormal EKG, acute pericarditis, anxiety, chest wall pain, mele Cholelithiasis esophagitis, hiatal hernia, pancreatitis, peptic ulcer disease, pericarditis, pneumothorax, pulmonary embolus, stable angina, unstable angina. HEART Score: History: Slightly Suspicious (0), ECG: Normal (0), Age: < or = 45 years (0), Risk Factors: No Risk Factors Known (0), Troponin: < or = 1 x Normal Limit (0), Total Score = 89. The patient's deep vein thrombosis risk score was calculated as follows: Total Score: 0. This patient was found to be at low risk for a deep vein thrombosis by using the Well's assessment criteria. The patient's pulmonary embolism risk score was calculated as follows: Total Score: 0-2 points. This patient was found to be at low risk for a pulmonary embolism by using the Well's assessment criteria. J CARLOS Risk Score: TOTAL SCORE = 0. Data reviewed: vital signs, nurses notes, lab test result(s), EKG, radiologic studies, plain films. Data interpreted: security monitor: rate is 89 beats/min, rhythm is regular, Pulse oximetry: on room air is 100 %. Test interpretation: by ED physician or midlevel provider: ECG, plain radiologic studies. Counseling: I had a detailed discussion with the patient and/or guardian regarding: the historical points, exam findings, and any diagnostic results supporting the discharge/admit diagnosis, lab results, radiology results. 10/11 10:23 Order name: CBC with Diff; Complete Time: 11:07 [facility] 10/11 10:23 Order name: Comprehensive Metabolic Panel; Complete Time: 11:42 [facility] 10/11 10:23 Order name: D-Dimer; Complete Time: 11:07 [facility] 10/11 10:40 Order name: Urine Dipstick-Ancillary; Complete Time: 10:55 EDMS 10/11 10:43 Order name: Urine --Ancillary (enter results); Complete Time: 11:42 eb 10/11 10:23 Order name: Chest Pa And Lat (2 Views) XRAY; Complete Time: 11:42 [facility] 10/11 10:23 Order name: EKG; Complete Time: 10:24 [facility] 10/11 10:23 Order name: EKG - Nurse/Tech; Complete Time: 10:25 [facility] 10/11 10:25 Order name: Urine Dipstick-Ancillary (obtain specimen); Complete Time: 10:38 [facility] 10/11 11:08 Order name: CT Chest For PE Angio [facility] 10/11 10:25 Order name: Urine Test (obtain specimen); Complete Time: 10:38 [facility] 10/11 10:42 Order name: Labs - recollect needed: ALL labs- hemolyzed; Complete Time: 10:52 ss EC:09 Rate is 80 beats/min. Rhythm is regular. QRS [place] is Normal. GA interval is normal. QRS mele interval is normal. QT interval is normal. T waves are Normal. No ST changes noted. Clinical impression: NSR w/ Non-specific ST/T Changes and No evidence of ischemia. Interpreted by me. Reviewed by me. Administered Medications: 10:39 Drug: NS 0.9% 1000 ml Route: IV; Rate: 1 bolus; Site: right antecubital; 6 10:39 Drug: Ketorolac 30 mg Route: IVP; Site: right antecubital; 6 10:51 Follow up: Response: No adverse reaction 6 10:39 Drug: Zofran (Ondansetron) 4 mg Route: IVP; Site: right antecubital; 6 10:51 Follow up: Response: No adverse reaction jh6 Disposition Summary: 10/11/21 11:57 Discharge Ordered Location: Home [facility] Problem: new mele Symptoms: have improved mele Condition: Stable mele Diagnosis - Chest pain on breathing mele Followup: mele - With: Private Physician - When: 2 - 3 days - Reason: Recheck today's complaints, Continuance of care, Re-evaluation by your physician Followup: mele - With: Ed Ba MD - When: 2 - 3 days - Reason: Recheck today's complaints, Re-evaluation by your physician Discharge Instructions: - Discharge Summary Sheet mele - Nonspecific Chest Pain, Adult mele - Chest Wall Pain mele - Costochondritis mele - Chest Wall Pain, [id number] mele - Nonspecific Chest Pain, Adult, Deci-if-Baca mele - Breast Tenderness [facility] Forms: - Medication Reconciliation Form mele - Thank You Letter mele - Antibiotic Education mele - Prescription Opioid Use [facility] Prescriptions: - Ibuprofen 600 mg Oral Tablet - take 1 tablet by ORAL route every 6 hours As needed take with food; 20 tablet; [facility] Refills: 0, Product Selection Permitted Signatures: Dispatcher [employer] Jean Bey MD MD cha Smirch, Shelby, RN RN ss Esperanza Grace RN RN jh6 Corrections: (The following items were deleted from the chart) 10:12 10:12 Allergies: mushrooms; [facility]
[2021-10-11 12:21] VITALS: O2SAT 100
[2021-10-11 12:28] VITALS: BP 110/86; TEMP 97.7
--- NOTE | 2021-10-12 13:22 | EKG ---
Test Date: 2021-10-11 Test Time: 10:19:20 Video Production Assistant: PH MEASUREMENT RESULTS: Intervals: Rate: 80 PA: 130 QRSD: 72 QT: 372 QTc: 429 [place]: P: 44 PA: 130 QRS: 8 T: 32 INTERPRETIVE STATEMENTS: Normal sinus rhythm Anterior infarct, age undetermined Abnormal ECG No previous ECG available for comparison Electronically Signed On 10-12-21 13:19:46 CDT by Gurdeep Barajas
== END 2021-10-11 12:11 | disposition home or self-care (01) ==
LOC: ER 09:58
DX: R07.1 Chest pain on breathing (principal)
CPT/HCPCS: 93005; 85025; 36415; 81025; 85379; 81003; 80053; 71275; 71046; 96375; 96374; 99285; Q9967; J7030; J2405

== ENCOUNTER 2022-12-09 09:41 | Emergency (ER) | payer OTHER ==
[2022-12-09] MEDS ORDERED: PROMETHAZINE INJ 25 MG/ML AMP ONE (10:05)
[2022-12-09] MEDS ORDERED: NA CHLORIDE 0.9% 1,000 ML ONE (10:06)
[2022-12-09 10:44] LABS: Hematocrit 43.1 % (36.0-45.0); MCV 90.5 fL (80-100); MPV 7.9 fL (7.6-11.3); RBC Red Blood Cell Count 4.77 M/uL (3.86-4.86)
[2022-12-09 10:45] LABS: Specific Gravity > 1.030 (1.005-1.030)
[2022-12-09 10:50] LABS: Specific Gravity > 1.030 (1.005-1.030); Urine Bacteria <20 /HPF (<20); Urine Bilirubin NEGATIVE (Negative); Urine Blood 2+ (Negative); Urine Clarity Extremely Turbid (Clear); Urine Color Yellow (Yellow); Urine Glucose NEGATIVE (Negative); Urine Mucus 4+ /HPF (None Seen); Urine Protein 2+ (Negative); Urine RBC 21-50 /HPF (None Seen); Urine Urobilinogen Normal (Normal)
[2022-12-09] MEDS ORDERED: POTASSIUM CL SA 10 MEQ TAB PO ONE (11:11)
--- NOTE | 2022-12-09 11:25 | EDPHYS ---
Physician Documentation [facility] Name: Johanne Carter Age: 27 yrs Sex: Female : 1995 Arrival Date: 12/09/2022 Time: 09:41 Bed 2 Private MD: ED Physician Rc hTomas HPI: 12/09 12:26 This 27 yrs old Female presents to ER via Ambulatory with complaints of kb Nausea/Vomiting. 12:26 The patient presents to the emergency department with nausea, vomiting. Onset: The kb symptoms/episode began/occurred 1.5 week(s) ago. Possible causes: . The symptoms are aggravated by nothing. The symptoms are alleviated by nothing. Associated signs and symptoms: Pertinent positives: nausea, vomiting, Pertinent negatives: abdominal pain, diarrhea, fever. Severity of symptoms: At their worst the symptoms were moderate in the emergency department the symptoms are unchanged. The patient has not experienced similar symptoms in the past. The patient has not recently seen a physician. Pt reports nausea and vomiting for 1.5 weeks that became worse 3-4 days ago. Denies abd pain, fever, diarrhea. Reports she is 9 weeks . 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 - Social history:: Smoking status: Patient denies any tobacco usage or history of. ROS: 12:25 Constitutional: Negative for fever, chills, and weight loss. kb 12:25 Abdomen/GI: Positive for nausea and vomiting, Negative for abdominal pain, diarrhea. 12:25 All other systems are negative. Exam: 12:25 Constitutional: This is a well developed, well nourished patient who is awake, alert, kb and in no acute distress. Head/Face: Normocephalic, atraumatic. ENT: Moist Mucous membranes Cardiovascular: Regular rate and rhythm with a normal S1 and S2. No gallops, murmurs, or rubs. No pulse deficits. Respiratory: Respirations even and unlabored. No increased work of breathing. Talking in full sentences Skin: Warm, dry with normal turgor. Normal color. MS/ Extremity: Pulses equal, no cyanosis. Neurovascular intact. Full, normal range of motion. Neuro: Awake and alert, GCS 15, oriented to person, place, time, and situation. Moves all extremities. Normal gait. 12:25 Abdomen/GI: Inspection: abdomen appears normal, Bowel sounds: normal, Palpation: soft, in all quadrants, nontender, in the right upper quadrant, right lower quadrant and left lower quadrant, mild abdominal tenderness, in the left upper quadrant. Vital Signs: 09:51 BP 123 / 81; Pulse 115; Resp 17; Temp 98.8(O); Pulse Ox 98% on R/A; Weight 69.85 kg; me1 Height 5 ft. 2 in. ; 10:41 BP 121 / 80; Pulse 68; Resp 18; Pulse Ox 99% ; ko1 11:38 BP 117 / 79; Pulse 68; Resp 16; Pulse Ox 100% ; ko1 09:51 Body Mass Index 28.17 (69.85 kg, 157.48 cm) me1 MDM: 09:43 Patient medically screened. kb 11:18 ED course: I evaluated patient, no abd tenderness on my exam, reports atleast 1.5 weeks rn of vomiting, worse over last 4 days with weakness and feeling dehydrated. Afebrile. Feels much better after fluids. Joint decision with patient and significant other to go home with antiemetics and strict return precautions given. . 12:25 Data reviewed: vital signs, nurses notes. kb 12:27 Differential diagnosis: gastritis, viral gastroenteritis, Hyperemesis gravidarum, kb vomiting in , dehydration. Counseling: I had a detailed discussion with the patient and/or guardian regarding: the historical points, exam findings, and any diagnostic results supporting the discharge/admit diagnosis, lab results, the need for outpatient follow up, a family practitioner, an OB/Gyne specialist, to return to the emergency department if symptoms worsen or persist or if there are any questions or concerns that arise at home. 12:28 ED course: Patient reports she is feeling better and tolerating p.o. intake prior to kb discharge.. 12/09 09:49 Order name: Basic Metabolic Panel; Complete Time: 10:59 kb 12/09 09:49 Order name: CBC with Diff; Complete Time: 10:45 kb 12/09 09:49 Order name: Test, Urine; Complete Time: 10:54 kb 12/09 09:49 Order name: Urinalysis w/ reflexes; Complete Time: 10:50 kb 12/09 09:49 Order name: IV Saline Lock; Complete Time: 10:07 kb 12/09 09:49 Order name: Labs collected and sent; Complete Time: 10:02 kb 12/09 09:49 Order name: NPO; Complete Time: 09:53 kb Administered Medications: 10:07 Drug: NS 0.9% IV 1000 ml Route: IV; Rate: 1000 ml; Site: right forearm; ko1 11:38 Follow up: IV Status: Completed infusion; IV Intake: 1000ml bp 10:07 Drug: Promethazine IVP 6.25 mg Route: IVP; Site: right forearm; ko1 11:03 Follow up: Response: Nausea is decreased ko1 11:03 Drug: Potassium Chloride PO 40 mEq Route: PO; ko1 11:38 Follow up: Response: No adverse reaction bp Disposition: 14:37 Co-signature as Attending Physician, Rc Thomas MD I reviewed the patient's care rn provided by the Advanced Practice Provider and agree with the diagnosis and treatment plan. Disposition Summary: 12/09/22 11:24 Discharge Ordered Location: Home kb Condition: Stable kb Diagnosis - Vomiting of , unspecified kb Followup: kb - With: Emergency Department - When: As needed - Reason: Worsening of condition Followup: kb - With: Private Physician - When: 2 - 3 days - Reason: Recheck today's complaints, Continuance of care, Re-evaluation by your physician Discharge Instructions: - Discharge Summary Sheet kb - Morning Sickness, [id number] kb - Nausea and Vomiting, Adult, [id number] kb Forms: - Medication Reconciliation Form kb - Thank You Letter kb - Antibiotic Education kb - Prescription Opioid Use kb - Patient Portal Instructions kb - Family Work Release bp Prescriptions: - promethazine 25 mg Oral Tablet - take 1 tablet by ORAL route every 8 hours As needed; 10 tablet; Refills: 0, kb Product Selection Permitted Signatures: Dispatcher [employer] Mariah Arguello FNP-C FNP-Rc Kessler MD MD rn Oliver, Kathy, RN RN ko1 Tsering Cobb BRANDY RN me1 Guero Lawson RN bp
--- NOTE | 2022-12-09 11:25 | ER ---
Nurse's Notes [facility] Name: Johanne Carter Age: 27 yrs Sex: Female : 1995 Arrival Date: 12/09/2022 Time: 09:41 Bed 2 Private MD: Diagnosis: Vomiting of , unspecified Presentation: 12/09 09:50 Chief complaint: Patient states: vomiting. Coronavirus screen: Vaccine status: Patient me1 reports being unvaccinated. At this time, the client does not indicate any symptoms associated with coronavirus-19. Ebola Screen: No symptoms or risks identified at this time. Initial Sepsis Screen: Does the patient meet any 2 criteria? No. Patient's initial sepsis screen is negative. Does the patient have a suspected source of infection? No. Patient's initial sepsis screen is negative. Risk Assessment: Do you want to hurt yourself or someone else? Patient reports no desire to harm self or others. Onset of symptoms was December 06, 2022. 09:50 Method Of Arrival: Ambulatory [facility] 09:50 Acuity: NATALIYA 3 ss Triage Assessment: 09:51 General: Appears uncomfortable, ill, Behavior is calm, cooperative, appropriate for [facility] age. Pain: Denies pain. Neuro: Level of Consciousness is awake, alert, obeys commands, Oriented to person, place, time, situation, Appropriate for age. Cardiovascular: Capillary refill < 3 seconds Patient's skin is warm and dry. Respiratory: Respiratory effort is unlabored, labored, Respiratory pattern is regular, symmetrical. GI: Reports nausea, vomiting. : Denies burning with urination, pain. 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 - Social history:: Smoking status: Patient denies any tobacco usage or history of. Screenin:08 [facility] ED Fall Risk Assessment (Adult) History of falling in the last 3 months, bp including since admission No falls in past 3 months (0 pts). Abuse screen: Denies threats or abuse. Denies injuries from another. Nutritional screening: No deficits noted. Tuberculosis screening: No symptoms or risk factors identified. Assessment: 09:51 General: SEE TRIAGE NOTE. bp 11:39 Reassessment: DC HOME AMBULATORY WITH FAMILY. bp Vital Signs: 09:51 BP 123 / 81; Pulse 115; Resp 17; Temp 98.8(O); Pulse Ox 98% on R/A; Weight 69.85 kg; me1 Height 5 ft. 2 in. ; 10:41 BP 121 / 80; Pulse 68; Resp 18; Pulse Ox 99% ; ko1 11:38 BP 117 / 79; Pulse 68; Resp 16; Pulse Ox 100% ; ko1 09:51 Body Mass Index 28.17 (69.85 kg, 157.48 cm) me1 ED Course: 09:42 Patient arrived in ED. rg4 09:43 [facility] kb 09:43 Sejal Duenas MD is Attending Physician. kb 09:51 Triage completed. me1 09:51 Arm band placed on Patient placed in waiting room. me1 09:52 Fariba Chaudhari, RN is Primary Nurse. ko1 10:02 Basic Metabolic Panel Sent. ko1 10:02 CBC with Diff Sent. ko1 10:07 Inserted saline lock: 22 gauge in right forearm, using aseptic technique. Blood bp collected. 10:08 Patient has correct armband on for positive identification. Bed in low position. Call bp light in reach. Side rails up X2. Adult w/ patient. 10:41 Provided Education on: labs/iv. Pulse ox on. NIBP on. Door closed. Noise minimized. ko1 Warm blanket given. 11:08 Rc Thomas MD is Attending Physician. kb 11:39 No provider procedures requiring assistance completed. IV discontinued, intact, bp bleeding controlled, No redness/swelling at site. Pressure dressing applied. Administered Medications: 10:07 Drug: NS 0.9% IV 1000 ml Route: IV; Rate: 1000 ml; Site: right forearm; ko1 11:38 Follow up: IV Status: Completed infusion; IV Intake: 1000ml bp 10:07 Drug: Promethazine IVP 6.25 mg Route: IVP; Site: right forearm; ko1 11:03 Follow up: Response: Nausea is decreased ko1 11:03 Drug: Potassium Chloride PO 40 mEq Route: PO; ko1 11:38 Follow up: Response: No adverse reaction bp Medication: 11:39 VIS not applicable for this client. bp Intake: 11:38 IV: 1000ml; Total: 1000ml. bp Outcome: 11:24 Discharge ordered by MD. anne 11:39 Discharged to home ambulatory, with family. bp 11:39 Condition: stable 11:39 Discharge instructions given to patient, Instructed on discharge instructions, follow up and referral plans. medication usage, Demonstrated understanding of instructions, follow-up care, medications, Prescriptions given X 1. 11:40 Patient left the ED. bp Signatures: Mariah Lynch, STRE[employer]-C [employer]-Ckb Charlene Silva, RN RN ss Carola Arroyo rg4 Guero Lawson RN RN bp Fariba Chaudhari, RN RN ko1 Tsering Cobb, RN RN me1 Corrections: (The following items were deleted from the chart) 10:12 09:50 Acuity: NATALIYA 4 me1 ss
[2022-12-09 12:07] VITALS: TEMP 98.8
[2022-12-09 12:09] VITALS: BP 117/79; O2SAT 100
== END 2022-12-09 11:40 | disposition home or self-care (01) ==
LOC: ER 09:41
DX: O21.9 Vomiting of pregnancy, unspecified (principal); Z3A.09 9 weeks gestation of pregnancy
CPT/HCPCS: 96361; 85025; 81001; 80048; 36415; 81025; 96374; 99284; J2550; J7030

== ENCOUNTER 2024-12-22 20:44 | Emergency (ER) | payer OTHER ==
--- OUTSIDE RECORDS SUMMARY | 2024-12-22 20:49 | XMS REPORT | Continuity of Care Document ---
Author Name Unknown Address [address] [facility] [place] [address] Organization [facility] [place] Address [address] [facility] [place] [address] Care Team Providers Care Supervisor [employer] Name Role Phone PCP, PATIENT DOES NOT HAVE A Primary Care Physic dorota Unavailable KRISTIN ORTEGA Attending Clinician Unavailgypsy vargas Pob, [facility] Main Attending Clinician UnavailKristin Brothers CNM Attending Clinician [phone] JETT ARAGON Attending Clinician Unavailable KATHRINE COMBS Attending Clinician Unavailable KATHRINE COMBS Attending Clinician Unavailable CONCETTA VINES Attending Clinician UnaCONCETTA Warner Attending Clinician UnaBOBY Woodard Attending Clinician Unavailable BOBY DAVIDSON Attending Clinician Unavailable OC GUTIERREZ Attending Clinician Unavail Jovana Apodaca MD Attending Clinician [phone] Unknown, Attending Attending Clinician Unavailab RADHA Romero Attending Clinician RADHA Mcmanus Attending Clinician ZAIDA Tinsley Attending Clinician Unavailable Zaida Raymundo MD Attending Clinician [phone] Kane Allen MD Attending Clinicia n Bassem Jain MD Attending Clinician [phone] PEPE ESCOBEDO Attending Clinician Unavailable Pepe Escobedo MD Attending Clinician [phone] Doctor Unassigned, [facility] Attending Clinician U yaya 1, [facility] Nst Room Attending Clinician Unavailable 2, [facility] Attending Clinician Unavailable 1, [facility] Mfm Usg Room Attending Clinician Unavaila ble Lab, Ang - Db Attending Clinician Unavailable PEPE ESCOBEDO Admitting Clinician Unavailable SKINNY, ZAIDA Infante Admitting Clinician Unavailable Zaida Raymundo MD Admitting Clinician Pepe Escobedo MD Admitting Clinician Payers Payer Name Policy Type Policy Number Effective Date Expirati on Date Source [facility] [id number] 2023 00:00:00 [place] [id number] 2024 00:00:00 2024 00:00:00 Problems Condition Name Condition Details Condition Category Status Onset Date Resolution Date Last Treatment Date Treating Clinician Comments Source Rubella non-immune status, antepartum Rubella non-immune status, antepartum Disease Active 11-23 00:00: 00 [facility] Obesity affecting Obesity affecting Disease Active 0 11-21 00:00: 00 [facility] Nausea and vomiting during Nausea and vomiting during Disease Resolve d 0 7-16 00:00: 00 2024-12-19 00:00:00 2024-12-19 13:39:08 [facility] UTI (urinary tract infection) during UTI (urinary tract infection) during Disease Resolve d 2024-0 7-16 00:00: 00 2024-11-23 00:00:00 2024-11-23 06:52:53 [facility] Uterine contractio ns Uterine contractio ns Disease Resolve d 2023-0 2-14 00:00: 00 2024-11-21 00:00:00 2024-11-21 14:10:28 [facility] 38 weeks gestation of 38 weeks gestation of Disease Resolve d 2023-0 2-14 00:00: 00 2024-11-21 00:00:00 2024-11-21 14:10:34 [facility] Liveborn , of turcios , born in hospital by vaginal delivery Liveborn , of turcios , born in hospital by vaginal delivery Disease Resolve d 2023-0 2-14 00:00: 00 2024-11-21 00:00:00 2024-11-21 14:10:34 [facility] Obesity (BMI 30-39.9) Obesity (BMI 30-39.9) Disease Resolve d 2022-05 2-18 00:00: 00 2024-11-21 00:00:00 2024-11-21 14:10:32 [facility] Limited care in second trimester Limited care in second trimester Disease Resolve d 2022-05 0-12 00:00: 00 2024-11-21 00:00:00 2024-11-21 14:10:30 [facility] High-risk in second trimester High-risk in second trimester Disease Resolve d 2022-05 0-12 00:00: 00 2024-11-21 00:00:00 2024-11-21 14:10:31 [facility] Allergies, Adverse Reactions, Alerts Allergy Name Allergy Type Status Severity Reaction(s) Onset Date Inactive Date Treating Clinician Comments Source NO KNOWN ALLERGIE S Drug Class Active [facility] Social History Social Habit Start Date Stop Date Quantity Comments Source ASSERTION 2024-09-30 00:00:00 [facility] of Social function 2024-11-21 00:00:00 2024-11-21 00:00:00 [facility] Alcoholic beverage intake 2024-11-21 00:00:00 2024-11-21 00:00:00 Ex-drinker (finding) [facility] Alcohol intake 2023-06-22 00:00:00 2023-06-22 00:00:00 Ex-drinker (finding) [facility] Tobacco use and exposure 2023-02-17 00:00:00 2023-02-17 00:00:00 Smokeless tobacco non-user [facility] Sex assigned at 1995 00:00:00 1995 00:00:00 [facility] Smoking Status Start Date Stop Date Source Never smoked tobacco [facility] Medications Ordered Medication Name Filled Medication Name Start Date Stop Date Current Medication? Ordering Clinician Indication Dosage Frequency Signature (SIG) Comments Components Source vit no.124/iron /folic ( VITAMIN ORAL) 11-21 14:13: 18 Yes [id number] Take by mouth. [facility] pantoprazol e (PROTONIX) 80 mg in NaCl 0.9% (NS) 20 mL syringe 11-20 10:30: 00 11-20 09:30 :00 No 80mg 80 mg, Slow IV Push, ONCE, 1 dose, On Tue11/20/24 at 0530, Administer over 2 Minutes, 20 mL [facility] maalox/diph enhydrAMINE :lidocaine2 %viscous 1:1:1: suspension (COMPOUNDED ) 11-20 09:30: 00 11-20 09:28 :00 No 15mL 15 mL, Oral, ONCE, 1 dose, On Tue11/20/24 at 0430, Routine [facility] cephALEXin 500 mg capsule 11-20 00:00: 00 11-26 04:59 :00 Yes [id number] 500mg Take 1 capsule by mouth 4 times daily for 5 days. [facility] metoclopram cyndie HCl 10 mg tablet 11-20 00:00: 00 11-21 00:00 :00 No [id number] 10mg Take 1 tablet by mouth every 6 hours. [facility] 25/iron fum/folic/d bonilla (-1 ORAL) 06-23 11:12: 16 06-23 00:00 :00 No Take by mouth. [facility] vitamin w/FA tablet 06-23 00:00: 00 11-21 00:00 :00 No [id number] 102 1{tbl} Take 1 tablet by mouth in the morning. [facility] docusate 100 mg capsule 06-23 00:00: 00 11-21 00:00 :00 No [id number] 102 200mg Take 2 capsules by mouth once daily as needed for Constipati on. [facility] ferrous sulfate 325 mg (65 mg iron) tablet 06-23 00:00: 00 11-21 00:00 :00 No [id number] 102 325mg Take 1 tablet by mouth in the morning. [facility] ibuprofen 600 mg tablet 06-23 00:00: 00 11-21 00:00 :00 No [id number] 102 600mg Take 1 tablet by mouth every 6 (six) hours as needed (Pain). Take with food or milk. [facility] rho(D) immune globulin (RHOGAM) syringe 300 mcg 06-22 14:43: 00 Yes 300ug 300 mcg, Intramuscu lar, ONCE, For 1 dose, Conditiona l, Routine [facility] HYDROcodone -acetaminop hen (NORCO 5) 5-325 mg tablet 1 tablet 06-22 14:40: 42 Yes 1{tbl} 1 tablet, Oral, Q6HPRN, Starting on Tue06/22/23 at 0840, Until Discontinu ed, Routine, Pain (scale 7-10) [facility] ibuprofen (IBU) tablet 600 mg 06-22 14:40: 42 Yes 600mg 600 mg, Oral, Q6HPRN, Starting on Tue06/22/23 at 0840, Until Discontinu ed, Routine, Pain (scale 4-6) [facility] acetaminoph en (TYLENOL) tablet 650 mg 06-22 14:40: 42 Yes 650mg 650 mg, Oral, Q6HPRN, Starting on Tue06/22/23 at 0840, Until Discontinu ed, Routine, Pain (scale 1-3) [facility] diphenhydrA MINE (BENADRYL) tablet 25 mg 06-22 14:40: 42 Yes 25mg 25 mg, Oral, Q6HPRN, Starting on Tue06/22/23 at 0840, Until Discontinu ed, Routine, Sleep, Itching [facility] ondansetron (ZOFRAN (PF)) injection 4 mg 06-22 14:40: 42 Yes 4mg 4 mg, Slow IV Push, Q8HPRN, Starting on Tue06/22/23 at 0840, Until Discontinu ed, Routine, Nausea and Vomiting (N/V) [facility] simethicone (GAS RELIEF (SIMETHICON E)) chewable tablet 160 mg 06-22 14:40: 42 Yes 160mg 160 mg, Oral, PC+HSPRN, Starting on Tue06/22/23 at 0840, Until Discontinu ed, Routine, Gas [facility] docusate (COLACE) capsule 200 mg 06-22 14:40: 42 Yes 200mg 200 mg, Oral, QDAILYPRN, Starting on Tue06/22/23 at 0840, Until Discontinu ed, Routine, Constipati on [facility] magnesium hydroxide (MILK OF MAGNESIA) 400 mg/5 mL suspension 30 mL 06-22 14:40: 42 Yes 30mL 30 mL, Oral, QDAILYPRN, Starting on Tue06/22/23 at 0840, Until Discontinu ed, Routine, Constipati on [facility] benzocaine- menthol (DERMOPLAST ) 20-0.5 % topical spray 06-22 14:40: 41 Yes Topical, PRN, Starting on Tue06/22/23 at 0840, Until Discontinu ed, Routine, Perineum discomfort [facility] oxytocin (PITOCIN) 30 units in NS 500 mL IV infusion 06-22 10:54: 00 06-22 14:42 :59 No 2mU/min at 2-40 mL/hr, IV Infusion, TITRATE, Starting on Tue06/22/23 at 0454, Until Tue06/22/23 at 0842, BRANDEN [facility] PIB fentaNYL-ro pivacaine 2 mcg/mL-0.1 % (PF) in NS 200 mL epidural infusion RTU 06-22 07:43: 00 06-22 21:01 :31 No Epidural, ONCE INTRA PROCEDURE, Starting on Tue06/22/23 at 0143, Until Discontinu ed, Routine, Intra-op [facility] lidocaine-e pinephrine (XYLOCAINE W/EPINEPHRI NE) 1.5 %-1:200,000 injection 06-22 07:33: 00 06-22 21:01 :31 No Intraderma l, ONCE INTRA PROCEDURE, Starting on Tue06/22/23 at 0133, Until Discontinu ed, Routine, Intra-op [facility] lactated ringers IV infusion 500 mL 06-22 06:14: 56 06-22 14:42 :59 No 500mL at 999 mL/hr, 500 mL, IV Infusion, PRN - SEE INSTRUCTIO NS, Starting on Tue06/22/23 at 0014, Until Tue06/22/23 at 0842, Routine [facility] D5W-LR IV infusion 1,000 mL 06-22 06:14: 56 06-22 14:42 :59 No 1000mL at 1-125 mL/hr, IV Infusion, TITRATE, Starting on Tue06/22/23 at 0014, Until Tue06/22/23 at 0842, Routine [facility] 25/iron fum/folic/d bonilla (-1 ORAL) 06-21 22:56: 25 Yes Take by mouth. [facility] NaCl 0.9% (NS) IV infusion 1,000 mL 06-21 10:30: 00 06-21 09:47 :14 No 1000mL at 999 mL/hr, IV Infusion, ONCE, 1 dose, On Tue06/21/23 at 0430, Routine [facility] metoclopram cyndie HCl (REGLAN) injection 10 mg 06-21 09:30: 00 Yes 10mg 10 mg, Slow IV Push, Q6H ABX, First dose on Tue06/21/23 at 0330, Until Discontinu ed, Routine [facility] NaCl 0.9% (NS) IV infusion 1,000 mL 06-21 09:00: 00 06-21 08:41 :26 No 1000mL at 999 mL/hr, IV Infusion, ONCE, 1 dose, On Tue06/21/23 at 0300, Routine [facility] 25/iron fum/folic/d bonilla (-1 ORAL) 2024-0 2-13 05:49: 31 Yes Take by mouth. [facility] 25/iron fum/folic/d bonilla (-1 ORAL) 2- 15:37: 12 Yes Take by mouth. [facility] 25/iron fum/folic/d bonilla (-1 ORAL) 1-18 08:59: 24 Yes Take by mouth. [facility] 25/iron fum/folic/d bonilla (-1 ORAL) 2022-05 0-12 10:28: 34 Yes Take by mouth. [facility] proMETHazin e 25 mg tablet 09-11 00:00: 00 06-23 00:00 :00 No 25mg Take 1 tablet by mouth every 6 (six) hours as needed for Nausea and Vomiting (N/V). [facility] Immunizations Ordered Immunization Name Filled Immunization Name Date Status Comments Source TDAP 2020-08-26 00:00:00 Completed HEPATITIS A 2010-12-23 00:00:00 Completed HPV 2010-12-23 00:00:00 Completed Meningococcal Polysaccharide (groups A, C, Y and W-135) conjugate vaccine (MCV4P) 2010-12-23 00:00:00 Completed TDAP 2010-12-23 00:00:00 Completed Varicella (varivax)(chicken pox) 2010-12-23 00:00:00 Completed DTaP, Unspecified Formulation 2001-04-12 00:00:00 Completed MMR 2001-04-12 00:00:00 Completed IPV 2001-04-12 00:00:00 Completed DTaP, Unspecified Formulation 1998-03-17 00:00:00 Completed Haemophilus influenzae type b vaccine, conjugate unspecified formulation 1998-03-17 00:00:00 Completed DTaP, Unspecified Formulation 1997 00:00:00 Completed Hep B, Adol or Pedi Dosage 1997 00:00:00 Completed Haemophilus influenzae type b vaccine, conjugate unspecified formulation 1997 00:00:00 Completed IPV 1997 00:00:00 Completed DTaP, Unspecified Formulation 1997 00:00:00 Completed Hep B, Adol or Pedi Dosage 1995 00:00:00 Completed Haemophilus influenzae type b vaccine, conjugate unspecified formulation 1995 00:00:00 Completed IPV 1995 00:00:00 Completed Vital Signs Vital Name Observation Time Observation Value Comments [facility] Systolic blood pressure 2024-12-19 18:31:00 118 mm[Hg[facility] Diastolic blood pressure 2024-12-19 18:31:00 80 mm[Hg] [facility] Heart rate 2024-12-19 18:31:00 103 /min [facility] Body temperature 2024-12-19 18:31:00 35.72 Tavia [facility] Respiratory rate 2024-12-19 18:31:00 18 /min [facility] Body height 2024-12-19 18:31:00 154.9 cm [facility] Body weight 2024-12-19 18:31:00 78.671 kg [facility] BMI 2024-12-19 18:31:00 32.77 kg/m2 [facility] Systolic blood pressure 2024-11-21 19:08:00 113 mm[Hg] [facility] Diastolic blood pressure 2024-11-21 19:08:00 73 mm[Hg] [facility] Heart rate 2024-11-21 19:08:00 95 /min [facility] Body temperature 2024-11-21 19:08:00 36.78 Tavia [facility] Respiratory rate 2024-11-21 19:08:00 17 /min [facility] Body height 2024-11-21 19:08:00 154.9 cm [facility] Body weight 2024-11-21 19:08:00 76.8 kg [facility] BMI 2024-11-21 19:08:00 31.99 kg/m2 [facility] Systolic blood pressure 2024-11-20 09:37:00 111 mm[Hg] [facility] Diastolic blood pressure 2024-11-20 09:37:00 70 mm[Hg] [facility] Heart rate 2024-11-20 09:37:00 85 /min [facility] Body temperature 2024-11-20 09:37:00 36.89 Tavia [facility] Respiratory rate 2024-11-20 09:37:00 16 /min [facility] Oxygen saturation in Arterial blood by Pulse oximetry 2024-11-20 09:37:00 99 /min [facility] Body height 2024-11-20 07:02:00 154.9 cm Univ [facility] Body weight 2024-11-20 07:02:00 81.194 kg Univ [facility] BMI 2024-11-20 07:02:00 33.82 kg/m2 [facility] Systolic blood pressure 2024-10-22 19:23:00 131 mm[Hg] [facility] Diastolic blood pressure 2024-10-22 19:23:00 78 mm[Hg] [facility] Heart rate 2024-10-22 19:23:00 104 /min [facility] Body temperature 2024-10-22 19:23:00 37 Tavia [facility] Respiratory rate 2024-10-22 19:23:00 18 /min [facility] Body height 2024-10-22 19:23:00 154.9 cm [facility] Body weight 2024-10-22 19:23:00 75.342 kg Univ [facility] BMI 2024-10-22 19:23:00 31.38 kg/m2 [facility] Oxygen saturation in Arterial blood by Pulse oximetry 2024-10-22 19:23:00 98 /min [facility] Heart rate 2023-06-23 13:45:00 65 /min [facility] Body temperature 2023-06-23 13:45:00 36.33 Tavia [facility] Respiratory rate 2023-06-23 13:45:00 14 /min [facility] Oxygen saturation in Arterial blood by Pulse oximetry 2023-06-23 13:45:00 100 /min [facility] Systolic blood pressure 2023-06-23 10:25:00 129 mm[Hg] [facility] Diastolic blood pressure 2023-06-23 10:25:00 79 mm[Hg] [facility] Systolic blood pressure 2023-06-21 20:30:00 127 mm[Hg] [facility] Diastolic blood pressure 2023-06-21 20:30:00 76 mm[Hg] [facility] Heart rate 2023-06-21 20:30:00 88 /min [facility] Body temperature 2023-06-21 20:30:00 36.61 Tavia [facility] Respiratory rate 2023-06-21 20:30:00 16 /min [facility] Body height 2023-06-21 20:30:00 157.5 cm [facility] 2023-06-21 20:30:00 83.008 kg Univ [facility] BMI 2023-06-21 20:30:00 33.47 kg/m2 [facility] Systolic blood pressure 2023-06-21 07:49:00 117 mm[Hg] [facility] Diastolic blood pressure 2023-06-21 07:49:00 80 mm[Hg] [facility] Heart rate 2023-06-21 07:49:00 92 /min [facility] Body temperature 2023-06-21 07:49:00 36.78 Tavia [facility] Respiratory rate 2023-06-21 07:49:00 18 /min [facility] Body height 2023-06-21 07:49:00 157.5 cm Univ [facility] Body weight 2023-06-21 07:49:00 83.462 kg Univ [facility] BMI 2023-06-21 07:49:00 33.65 kg/m2 [facility] Oxygen saturation in Arterial blood by Pulse oximetry 2023-06-21 07:49:00 99 /min [facility] Systolic blood pressure 2023-06-09 21:50:00 117 mm[Hg] [facility] Diastolic blood pressure 2023-06-09 21:50:00 78 mm[Hg] [facility] Heart rate 2023-06-09 21:50:00 101 /min [facility] Respiratory rate 2023-06-09 21:50:00 18 /min [facility] Body height 2023-06-09 21:50:00 157.5 cm [facility] Body weight 2023-06-09 21:50:00 84.823 kg [facility] BMI 2023-06-09 21:50:00 34.20 kg/m2 [facility] Systolic blood pressure 2023-05-26 14:59:00 121 mm[Hg] [facility] Diastolic blood pressure 2023-05-26 14:59:00 86 mm[Hg] [facility] Heart rate 2023-05-26 14:59:00 103 /min [facility] Res[facility] 2023-05-26 14:59:00 18 /min [facility] Body height 2023-05-26 14:59:00 157.5 cm [facility] Body weight 2023-05-26 14:59:00 84.823 kg Univ [facility] BMI 2023-05-26 14:59:00 34.20 kg/m2 Univ [facility] Systolic blood pressure 2023-04-25 22:26:00 126 mm[Hg] [facility] Diastolic blood pressure 2023-04-25 22:26:00 66 mm[Hg] [facility] Heart rate 2023-04-25 22:26:00 93 /min [facility] Body temperature 2023-04-25 22:26:00 36.44 Tavia [facility] Respiratory rate 2023-04-25 22:26:00 17 /min [facility] Body height 2023-04-25 22:26:00 160 cm [facility] Body weight 2023-04-25 22:26:00 83.734 kg Univ [facility] BMI 2023-04-25 22:26:00 32.70 kg/m2 [facility] Systolic blood pressure 2023-02-17 15:16:00 122 mm[Hg] [facility] Diastolic blood pressure 2023-02-17 15:16:00 74 mm[Hg] [facility] Heart rate 2023-02-17 15:16:00 116 /min [facility] Body temperature 2023-02-17 15:16:00 36.5 Tavia [facility] Respiratory rate 2023-02-17 15:16:00 16 /min [facility] Body height 2023-02-17 15:16:00 157.5 cm [facility] Body weight 2023-02-17 15:16:00 72.303 kg [facility] BMI 2023-02-17 15:16:00 29.15 kg/m2 [facility] Procedures Procedure Date / Time Performed Performing Clinician Source FIRST TRIMESTER ULTRASOUND 2024-12-13 21:01:00 Kristin Ortega [facility] GLYCOSYLATED HEMOGLOBIN (A1C) 2024-11-21 19:55:00 Kristin Ortega [facility] HEPATITIS B SURFACE ANTIGEN 2024-11-21 19:55:00 Kristin Ortega [facility] HCV ANTIBODY 2024-11-21 19:55:00 [facility] HB INDIRECT ANTIGLOBULIN TEST 2024-11-21 19:55:00 Kristin Ortega [facility] POCT TEST 2024-11-21 19:09:00 Bree Ortega [facility] POCT URINALYSIS W/O SPECIFIC GRAVITY 2024-11-21 19:09:00 Kristin Ortega [facility] POCUS OB US ABD LIMITED 2024-11-20 08:50:05 Fco Davidson [facility] POCT TEST 2024-11-20 07:33:00 Estrellita Davidson [facility] COMP. METABOLIC PANEL ([id number]) 2024-11-20 07:32:00 Boby Davidson [facility] TOTAL BETA HCG ASSAY 2024-11-20 07:32:00 Sahne Davidson [facility] CBC WITH DIFF 2024-11-20 07:32:00 Boby Davidson [facility] URINALYSIS 2024-11-20 07:32:00 Boby Davidson [facility] POCT TEST 2024-10-22 19:37:00 [facility] WITH DIFF 2023-06-23 10:25:00 Adum, Zaida Amador [facility] CENTRAL NEURAXIAL BLOCK 2023-06-22 07:48:00 Kane Olmstead [facility] HEPATITIS B SURFACE ANTIGEN 2023-06-22 06:37:00 Adum, Zaida Infante [facility] HB ABO GROUPING 2023-06-22 06:37:00 [facility] RHO ([facility] IMMUNE GLOBULIN 2023-06-22 06:37:00 Adum, Morelia Infante [facility] ADC ONLY - FERN TEST 2023-06-22 06:37:00 Adum, Zaida Infante [facility] ADC OR VITO ONLY - RPR 2023-06-22 06:37:00 Adum, Zaida Infante [facility] HIV 1/2 AG-AB WITH REFLEX 2023-06-22 06:37:00 Adum, Zaida Infante [facility] ADC ONLY - FERN TEST 2023-06-22 05:09:00 Adum, Zaida Infante [facility] URINALYSIS 2023-06-21 08:52:00 Pepe Escobedo [facility] AMYLASE 2023-06-21 08:38:00 Pepe Escobedo [facility] LIPASE 2023-06-21 08:38:00 Pepe Escobedo [facility] COMP. METABOLIC PANEL ([id number]) 2023-06-21 08:38:00 Pepe Escobedo [facility] CBC WITH DIFF 2023-06-21 08:38:00 Pepe Escobedo [facility] ASSIGNMENT OF BENEFITS 2023-06-21 07:26:07 Docto r Unassigned, [facility] NOTICE OF PRIVACY PRACTICES 2023-06-21 07:25:02 Doctor Unassigned, [facility] CONSENT/REFUSAL FOR DIAGNOSIS AND TREATMENT 2023-06-21 07:24:42 Doctor Unassigned, [facility] POCT URINALYSIS W/O SPECIFIC GRAVITY 2023-06-21 00:00:00 ChandanaDo [facility] URINE DRUG (IMMUNOASSAY) - COMPREHENSIVE DRUG SCREEN 2023-06-09 21:50[facility] DSU PRE-OP 2023-06-09 06:01:00 Doctor Unass igned, [facility] POCT URINALYSIS W/O SPECIFIC GRAVITY 2023-06-09 00:00:00 [facility] POCT URINALYSIS W/O SPECIFIC GRAVITY 2023-05-26 00:00:00 ChandanaDo, [facility] POCT URINALYSIS W/O SPECIFIC GRAVITY 2023-04-25 00:00:00 ChandanaCitrus [facility] SECOND AND THIRD TRIMESTER ULTRASOUND 2023-03-29 20:35:00 Hugo [facility] >14 WEEKS US LIMITED 2023-02-17 15:32:51 [facility] POCT TEST 2023-02-17 00:00:00 Hugo [facility] POCT URINALYSIS W/O SPECIFIC GRAVITY 2023-02-17 00:00:00 [facility] Encounters Start Date/Time End Date/Time Encounter Type Admission Type Attending [facility] Care Facility Care Department Encounter ID Source 2023-06-21 05:49:[address] [facility] CAROLIN [id number] [facility] 2024-12-19 16:00:00 2024-12-19 16:15:00 Life Specialist Visit Mike Alvarez, [facility] Lab Main Kristin Ortega, Adc Lab Main [facility] [id number] [facility] 2024-12-19 15:45:00 2024-12-19 15:45:00 Outpatient R [facility] [id number] [facility] 2024-12-19 13:15:00 2024-12-19 14:03:33 Routine Visit R Kritsin Ortega [facility] [id number] 4.2.7.2.686 [id number] [facility] 2024-12-18 13:30:00 2024-12-18 13:30:00 Outpatient R JETT ARAGON [facility] [id number] [facility] 2024-12-18 00:00:00 2024-12-18 06:40:58 Abstract Kristin Ortega [facility] 1..840.114 350.1.13.10 4.2.7.2.686 [id number] [facility] 2024-12-13 15:00:00 2024-12-13 15:44:13 Life Specialist Visit R KATHRINE COMBS KARIN [facility] 1..840.114 350.1.13.10 4.2.7.2.686 [id number] [facility] 2024-12-10 10:00:00 2024-12-10 10:00:00 Outpatient R CONCETTA VINES CHASEY [facility] [id number] [facility] 2024-11-21 14:15:00 2024-11-21 14:55:12 Initial Visit R Kristin Ortega [facility] 1..840.114 350.1.13.10 4.2.7.2.686 [id number] [facility] 2024-11-21 13:45:00 2024-11-21 13:45:00 Outpatient R KRISTIN ORTEGA [facility] [id number] [facility] 2024-11-20 02:05:00 2024-11-20 04:42:00 Emergency X BOBY DAVIDSON PHILLIP [facility] ERT [id number] [facility] 2024-10-30 13:45:00 2024-10-30 13:45:00 Outpatient R SÁNCHEZTIPSHARMILAOC [facility] [id number] [facility] 2024-10-30 13:00:00 2024-10-30 13:00:00 Outpatient R [facility] [id number] [facility] 2024-10-22 14:20:00 2024-10-22 14:53:03 Urgent Care R Nithin Jovana Unknown, Attending [facility] 1.84.114 350..13.10 4.2.7.2.686 [id number] [facility] 2023-06-28 14:30:00 2023-06-28 14:30:00 Outpatient R LAMA-NAVID S, RADHA LAMA-NAVID S, RADHA [facility] [id number] [facility] 2023-06-21 22:56:00 2023-06-23 11:45:00 Inpatient P ZAIDA RAYMUNDO [facility] CAROLIN [id number] [facility] 2023-06-21 22:56:00 2023-06-23 11:45:00 Hospital Encounter BjZaida condon L [facility] ..114 350..13.10 4.2.7.2.686 [id number] [facility] 2023-06-22 01:03:00 2023-06-22 15:01:00 Anesthesia Event Kane Nelson David K [facility] 1.840.114 350.1.13.10 4.2.7.2.686 [id number] [facility] 2023-06-21 16:15:00 2023-06-21 16:15:00 Routine Visit Emiliana Taverassol [facility] 1.20.114 350.1.13.10 4.2.7.2.686 [id number] [facility] 2023-06-21 16:15:00 2023-06-21 14:46:04 Outpatient R RADHA TAVERAS [facility] [id number] [facility] 2023-06-21 01:32:00 2023-06-21 05:38:00 Outpatient X PEPE ESCOBEDO [facility] CAROLIN [id number] [facility] 2023-06-21 01:32:00 2023-06-21 05:38:[address] [facility] 1.2840.114 350.1.13.10 4.2.7.2.686 [id number] [facility] 2023-06-21 00:00:00 2023-06-21 00:00:00 Telephone Shahbaz munroe Counts include 234 beds at the [facility] 1.20.114 350.1.13.10 4.2.7.2.686 [id number] [facility] 2023-06-16 16:00:00 2023-06-16 16:00:00 Outpatient R [facility] [id number] [facility] 2023-06-10 00:00:00 2023-06-10 00:00:00 Patient Secure Msg Shahbaz munroe Radha [facility] 1.20.114 350.1.13.10 4.2.7.2.686 [id number] [facility] 2023-06-09 16:00:00 2023-06-09 16:03:54 Outpatient R LAMA-NAVID S, RADHA LAMA-NAVID S, RADHA [facility] [id number] [facility] 2023-06-09 16:00:00 2023-06-09 16:03:54 Routine Visit Emiliana Taverassol [facility] 1.2840.114 350.1.13.10 4.2.7.2.686 [id number] [facility] 2023-06-09 00:00:00 2023-06-09 00:00:00 Orders Only Doctor Unassigned, [facility] 1.2840.114 350.1.13.10 4.2.7.2.686 [id number] [facility] 2023-05-26 09:00:00 2023-05-26 09:11:26 Outpatient R LAMA-NAVID S, RADHA AZALEA-NAVID SEMILIANARADHA [facility] [id number] [facility] 2023-05-26 09:00:00 2023-05-26 09:11:26 Routine Visit 1, Lkj Nst Room Emiliana Taverassol [facility] 1.2840.114 350.1.13.10 4.2.7.2.686 [id number] [facility] 2023-05-12 14:00:00 2023-05-12 14:00:00 Outpatient R [facility] [id number] [facility] 2023-05-06 10:15:00 2023-05-06 12:06:45 Outpatient R LAMA-NAVID S, RADHA LAMA-NAVID S, RADHA [facility] [id number] [facility] 2023-05-06 10:15:00 2023-05-06 10:30:00 Life Specialist Visit 2, Adc Lab Lama-Navid s, Radha [facility] 1.2.840.114 350.1.13.10 4.2.7.2.686 [id number] [facility] 2023-05-05 08:00:00 2023-05-05 08:00:00 Outpatient R [facility] [id number] [facility] 2023-04-25 16:15:00 2023-04-25 16:56:10 Outpatient R LAMA-NAVID S, RADHA LAMA-NAVID S, RADHA [facility] [id number] [facility] 2023-04-25 16:15:00 2023-04-25 16:56:10 Routine Visit Lama-Navid s, Radha [facility] 1.2.840.114 350.1.13.10 4.2.7.2.686 [id number] [facility] 2023-04-15 16:15:00 2023-04-15 16:15:00 Outpatient R LAMA-NAVID S, RADHA LAMA-NAVID S, RADHA [facility] [id number] [facility] 2023-04-14 16:15:00 2023-04-14 16:15:00 Outpatient R LAMA-NAVID S, RADHA LAMA-NAVID S, RADHA [facility] [id number] [facility] 2023 08:15:00 2023 08:15:00 Outpatient R LAMA-NAVID S, RADHA LAMA-NAVID S, RADHA [facility] [id number] [facility] 2023-03-29 13:30:00 2023-03-29 14:48:26 Outpatient P CONCETTA VINES [facility] [id number] [facility] 2023-03-29 13:30:00 2023-03-29 14:48:26 Life Specialist Visit 1, [facility] Us Room [facility] 1.2840.114 350.1.13.10 4.2.7.2.686 [id number] [facility] 2023-03-22 10:00:00 2023-03-22 10:00:00 Outpatient P LAMA-NAVID S, RADHA LAMA-NAVID S, RADHA [facility] [id number] [facility] 2023-03-18 13:15:00 2023-03-18 13:15:00 Outpatient R LAMA-NAVID S, RADHA LAMA-NAVID S, RADHA [facility] [id number] [facility] 2023-03-04 00:00:00 2023-03-04 00:00:00 Patient Secure Msg Lama-Navid s, Radha [facility] 1.0.114 350.1.13.10 4.2.7.2.686 [id number] [facility] 2023-02-28 00:00:00 2023-02-28 00:00:00 Telephone Lama-Navid s, Radha [facility] 1.0.114 350.1.13.10 4.2.7.2.686 [id number] [facility] 2023-02-18 00:00:00 2023-02-18 00:00:00 Patient Secure Msg Doctor Unassigned, [facility] 1.2840.114 350.1.13.10 4.2.7.2.686 [id number] [facility] 2023-02-17 12:15:00 2023-02-17 12:15:00 Life Specialist Visit Lab, J Luis - Db Shahbaz munroe, [facility] 1.2.840.114 350.1.13.10 4.2.7.2.686 [id number] [facility] 2023-02-17 10:00:00 2023-02-17 10:37:33 [facility] 1.840.114 350.1.13.10 4.2.7.2.686 [id number] [facility] 2023-02-17 10:00:00 2023-02-17 10:37:33 Outpatient R RADHA TAVERAS S [facility] [id number] [facility] Results Test Description Test Time Test Comments Results Result Co mments Source [facility] SURFACE [id number] 11:41:12 * Test Item Value Reference Range Interpretation Comme [facility] HBsAg Semi-Quantitative (sherman t code = 5195-3) 0.08 Negative [facility] HospitalGlycosylated Hemoglobin (A1C)2024-11-22 10:32:07* Test Item Value Reference Range Interpretation Comme [facility] HGB A1C (test code = 4548-4) 5.1 % 4.0-5.7 POLLO (test code = POLLO) Reference RangesNormal: <5.7%Prediabetes: 5.7 - 6.4%Diabetes: > 6.5% Lab Interpretation (test code = 49596-0) Normal [facility] HospitalPRENATAL WORKUP, BLOOD [id number] 06:37:00 * Test Item Value Reference Range Interpretation Comme nts IAT (test code = 1185) Negative [facility]PO[facility] [id number] 19:09:00* Test Item Value Reference Range Interpretation Comme nts POCT PREG (test code = 1605) Positive On board controls acceptable with C Line (test code = 3574) Yes POCT PREG LOT # (test code = 3575) POCT PREG TEST DATE ( test code = 3576) [facility] Urinalysis w/o Specific [id number] 19:09:00* Test Item Value Reference Range Interpretation Comme nts POCT PH U (test code = 3254) 7 mg/dl 5-8 POCT U LEUK EST (test code = 3263) Trace Negative - Negative POCT U NIT (test code = 3262) Pos Negative - Negati ve POCT U PROT (test code = 3259) Trace Negative - Negat veronica POCT U GLU (test code = 3256) Nml Negative - Negati ve POCT U KETONE (test code = 3258) Neg Negative - Neg ative POCT U BLD (test code = 3257) ~50 Negative - Negati ve [facility] US ABD [id number] 09:13:56 Study Date and Time: 2024-11-20 03:50Study Author: Boby Davidson OB - TAUS:Indications: ? ?Indications for this focused Ultrasound:: Positive Hcg ? ?Other (answer below): N/AViews Obtained: ? ?The following structures were examined from a transabdominal approach: Transverse uterus and Vesicouterine /Rectouterine Spaces, Sagittal uterus and Vesicouterine/Rectouterine Spaces ? ?Other views: N/AUterine Findings: ? ?Uterus: Antiverted ? ?Vesicouterine/Rectouterine spaces: No fluid ? ?Intrauterine : Present ? ?Findings visualized to confirm IUP: heart activity ? ?FHR (bpm): 164 ? ?Other: N/ARight Adnexa: ? ?The right adnexa was visualized with the following findings:: N/A ? ?Other: N/A ? ?Spectral doppler flow: N/A ? ?Color Doppler flow: N/A ? ?Other right adnexal findings: N/ALeft Adnexa: ? ?The left adnexa was visualized with the following findings:: N/A ? ?Other: N/A ? ?Spectral doppler flow: N/A ? ?Color Doppler flow: N/AInterpretation: ? ?Images above were diagnostic for the following findings: Live intrauterine ? ?Other (answer below): N/A ? ?Other uterine or adnexal interpretation: N/AConfirmatory Study: ? ?What confirmatory study was performed during EDpatient evaluation?: No additional imaging ordered ? ?Confirmatory study findings/comments: N/A Signed by Boby Davidson on 2024-11-20 04:13[facility] HCG [id number] 08:40:17* Test Item Value Reference Range Interpretation Comme nts BETA HCG (test code = 5201886420) 25887 See_Comment [Automated [employer]] The system which generated this result transmitted reference range: Non- female and male patients: <5 mIU/mL. The reference range was not used to interpret this result as normal/abnormal. POLLO (test code = POLLO) Gestational Age ?Range (mIU/mL) 1-10 ?Weeks ?58-47566937-49 Weeks ?00094-07865440-11 Weeks ?4470-83073818-49 Weeks ?7191-580576 Biotin has been reported to cause a negative bias, interpret results relative to patient's use of biotin. [facility]. Metabolic Panel (01001)2024-11-20 07:59:18* Test Item Value Reference Range Interpretation Comme nts NA (test code = 9533736107) 136 mmol/L 135-145 K (test code = 4368090294) 3.7 mmol/L 3.5-5.0 CL (test code = 2884311058) 104 mmol/L 98-108 CO2 TOTAL (test code = 3667719878) 24 mmol/L 23-31 AGAP (test code = 1388880514) 8 2-16 BUN (test code = 2274483922) 7 mg/dL 7-23 GLUCOSE (test code = 0113873358) 82 mg/dL 70-110 CREATININE (test code = 2160-0) 0.5 mg/dL 0.50-1.04 TOTAL BILI (test code = 5796802100) 0.2 mg/dL 0.1-1.1 CALCIUM (test code = 1428216920) 8.9 mg/dL 8.6-10.6 T PROTEIN (test code = 1446125358) 7.1 g/dL 6.3-8.2 ALBUMIN (test code = 3318668041) 4 g/dL 3.5-5.0 ALK PHOS (test code = 4382706489) 57 U/L 34-122 ALTv (test code = 1742-6) 13 U/L 5-35 AST(SGOT) (test code = 9380223020) 17 U/L 13-40 eGFR (test code = 21233-2) 132 mL/min/1.73m2 CKD-EPI eGFR (20 21). Assuming creatinine has been stable day-to-day for at least three months, the eGFR indicates Category G1 (>= 90 mL/min/1.73 m2) [facility] with [id number] 07:45:11* Test Item Value Reference Range Interpretation Comme nts WBC (test code = 6690-2) 15.56 4.30-11.10 H RBC (test code = 789-8) 3.95 3.93-5.25 HGB (test code = 718-7) 11.8 g/dL 11.6-15.0 HCT (test code = 4544-3) 35.2 % 35.7-45.2 L MCV (test code = 787-2) 89.1 fL 80.6-95.5 MCH (test code = 785-6) 29.9 pg 25.9-32.8 MCHC (test code = 786-4) 33.5 g/dL 31.6-35.1 RDW-SD (test code = 79065-7) 44.5 fL 39.0-49.9 RDW-CV (test code = 788-0) 13.6 % 12.0-15.5 PLT (test code = 777-3) 413 166-358 H MPV (test code = 12483-9) 9.1 fL 9.5-12.9 L NRBC/100 WBC (test code = 2234516299) 0 0.0-10.0 NRBC x10^3 (test code = 2756726125) See_Comment [Automated message] The system which generated this result transmitted reference range: 10*3/?L. The reference range was not used to interpret this result as normal/abnormal. GRAN MAT (NEUT) % (test code = 770-8) 67.7 % IMM GRAN % (test code = 3988337094) 0.5 % LYMPH % (test code = 736-9) 23.3 % MONO % (test code = 5905-5) 6.7 % EOS % (test code = 713-8) 1.2 % BASO % (test code = 706-2) 0.6 % GRAN MAT x10^3(ANC) (test code = 9303542703) 10.54 10*3/uL 1.88-7.09 H IMM GRAN x10^3 (test code = 4446346441) 0.08 10*3/uL 0.00-0.06 H LYMPH x10^3 (test code = 731-0) 3.63 10*3/uL 1.32-3.29 H MONO x10^3 (test code = 742-7) 1.04 10*3/uL 0.33-0.92 H EOS x10^3 (test code = 711-2) 0.18 10*3/uL 0.03-0.39 BASO x10^3 (test code = 704-7) 0.09 10*3/uL 0.01-0.07 H Lab Interpretation (test code = 99686-9) Abnormal [facility] [id number] 07:33:00* Test Item Value Reference Range Interpretation Comme nts POCT PREG (test code = 1605) Positive On board controls acceptable with C Line (test code = 3574) Yes POCT PREG LOT # (test code = 3575) 083815 POCT PREG TEST DATE ( test code = 3576) 04-03-2026 Lab Interpretation (test cod e = 36184-4) Normal [facility] [id number] 19:37:00* Test Item Value Reference Range Interpretation Comme nts POCT PREG (test code = 1605) Positive On board controls acceptable with C Line (test code = 3574) Yes POCT PREG LOT # (test code = 3575) POCT PREG TEST DATE ( test code = 3576) Lab Interpretation (test cod e = 51276-3) Abnormal [facility] with Tawwstczevlq1898-64-18 11:19:46* Test Item Value Reference Range Interpretation Comme nts WBC (test code = 6690-2) 18.68 4.30-11.10 H RBC (test code = 789-8) 3.31 3.93-5.25 L HGB (test code = 718-7) 10.4 g/dL 11.6-15.0 L HCT (test code = 4544-3) 30.6 % 35.7-45.2 L MCV (test code = 787-2) 92.4 fL 80.6-95.5 MCH (test code = 785-6) 31.4 pg 25.9-32.8 MCHC (test code = 786-4) 34.0 g/dL 31.6-35.1 RDW-SD (test code = 47173-2) 44.5 fL 39.0-49.9 RDW-CV (test code = 788-0) 13.2 % 12.0-15.5 PLT (test code = 777-3) 311 166-358 MPV (test code = 19082-8) 10.4 fL 9.5-12.9 NRBC/100 WBC (test code = 5680407508) 0.0 0.0-10.0 NRBC x10^3 (test code = 9121979330) See_Comment [Automated message] The system which generated this result transmitted reference range: 10*3/?L. The reference range was not used to interpret this result as normal/abnormal. GRAN MAT (NEUT) % (test code = 770-8) 78.0 % IMM GRAN % (test code = 2027677608) 1.20 % LYMPH % (test code = 736-9) 14.3 % MONO % (test code = 5905-5) 6.0 % EOS % (test code = 713-8) 0.1 % BASO % (test code = 706-2) 0.4 % GRAN MAT x10^3(ANC) (test code = 7726596885) 14.55 10*3/uL 1.88-7.09 H IMM GRAN x10^3 (test code = 3249556001) 0.22 10*3/uL 0.00-0.06 H LYMPH x10^3 (test code = 731-0) 2.68 10*3/uL 1.32-3.29 MONO x10^3 (test code = 742-7) 1.13 10*3/uL 0.33-0.92 H EOS x10^3 (test code = 711-2) 0.03-0.39 L BASO x10^3 (test code = 704-7) 0.08 10*3/uL 0.01-0.07 H Lab Interpretation (test code = 51335-5) Abnormal [facility] - [id number] 15:47:38* Test Item Value Reference Range Interpretation Comme nts RPR (Qualitative) (test code = 66343-5) Nonreactive Nonreactive Lab Interpretation (test cod e = 08486-2) Normal [facility] (D) IMMUNE [id number] 15:20:29* Test Item Value Reference Range Interpretation Comme nts RHIG CANDIDATE? (test code = 5188) No- see comment Patient is not a candidate for RhIg- Patient is Rh Positive.Performed at [facility] Laboratory Services - [facility] Blood [address] [place], [place] [id number] Free: [phone] No. [id number] [facility] HospitalHepatitis B Surface Sseiddi4820-51-51 12:03:02 * Test Item Value Reference Range Interpretation Comme nts HBsAg Semi-Quantitative (sherman t code = 5195-3) 0.05 Negative [facility] HospitalHIV 1/2 Ag-Ab with Yvjphr6113-67-19 09:11:28* Test Item Value Reference Range Interpretation Comme nts HIV Semi-quantitative (test code = 66763-8) 0.08 Negative POLLO (test code = POLLO) Non-reactive for HIV-1 antigen and HIV-1/HIV-2 antibodies. ?No laboratory evidence of HIV infection. ?Repeat in 2-4 weeks if acute HIV infection is suspected. [facility] [id number] 07:48:00 Kane Allen MD ? ? 06/22/2023 ?1:49 AM Central Neuraxial Block Date/Time: 06/22/2023 1:48 AM Performed by: Kane Allen MDAuthorized by: Kane Allen MD ?Patient Location: OBEnd Time: 06/22/2023 1:48 AMReason for Block: OB request, Patient request, Labor analgesia, Surgical anesthesia and Post-op pain managementStaff: ?Anesthesiologist: Kane Allen MD ?Performed by: anesthesiologistPreanesthetic Checklist: patient identified, IV checked, risks and benefits explained, monitors and equipment checked, timeout performed, pre-op evaluation, site marked and anesthesia consentProcedure: ?Type of Neuraxial: Epidural ?Epidural Description: DPE ? Sterility Prep cap, drape, gloves, hand hygiene and mask ? ?Sedation Level no sedation ?Prep: Betadine and patient draped ? ?Monitoring: heart rate, continuous pulse ox, heart rate / toco and NIBP ?Location: lumbar (1-5) ?Lumbar: L4-L5 ?Approach: midline ? ?Technique: catheter and ALLIE saline ?Guidance with: landmark technique}Epidural/Spinal [place] and/or Catheter: ?Epidural/Spinal Kit: BBraun ?Needle Type: Tuohy ?Needle Gauge: 17 G ?Needle Length: 3.5 in (8.89 cm) ?Needle Insertion Depth: 5 ?Catheter Type: multiport ? ?Catheter Size: 19 G ? ?Catheter at Skin Depth: 10 ?Number of At tempts: 1 ?Test Dose: lidocaine 1.5% with epinephrine 1-to-200,000 and negative ? ?Dose: 3 cc ? ?Catheter Securement Method: surgical tape and TegadermAssessment: ?Block Outcome: patient tolerated procedure well ? ?Procedure Assessment: patient tolerated procedure well with no complications [facility] [id number] 07:48:00 Kane Allen MD ? ? 06/22/2023 ?1:49 AM Central Neuraxial Block Date/Time: 06/22/2023 1:48 AM Performed by: Kane Allen MDAuthorized by: Kane Allen MD ?Patient Location: OBEnd Time: 06/22/2023 1:48 AMReason for Block: OB request, Patient request, Labor analgesia, Surgical anesthesia and Post-op pain managementStaff: ?Anesthesiologist: Kane Allen MD ?Performed by: anesthesiologistPreanesthetic Checklist: patient identified, IV checked, risks and benefits explained, monitors and equipment checked, timeout performed, pre-op evaluation, site marked and anesthesia consentProcedure: ?Type of Neuraxial: Epidural ?Epidural Description: DPE ? Sterility Prep cap, drape, gloves, hand hygiene and mask ? ?Sedation Level no sedation ?Prep: Betadine and patient draped ? ?Monitoring: heart rate, continuous pulse ox, heart rate / toco and NIBP ?Location: lumbar (1-5) ?Lumbar: L4-L5 ?Approach: midline ? ?Technique: catheter and ALLIE saline ?Guidance with: landmark technique}Epidural/Spinal [place] and/or Catheter: ?Epidural/Spinal Kit: BBraun ?Needle Type: Tuohy ?Needle Gauge: 17 G ?Needle Length: 3.5 in (8.89 cm) ?Needle Insertion Depth: 5 ?Catheter Type: multiport ? ?Catheter Size: 19 G ? ?Catheter at Skin Depth: 10 ?Number of At tempts: 1 ?Test Dose: lidocaine 1.5% with epinephrine 1-to-200,000 and negative ? ?Dose: 3 cc ? ?Catheter Securement Method: surgical tape and TegadermAssessment: ?Block Outcome: patient tolerated procedure well ? ?Procedure Assessment: patient tolerated procedure well with no complications [facility] HospitalType and Screen - ONCE [id number] 06:51:00 * Test Item Value Reference Range Interpretation Comme nts ABO & RH (test code = 20) O POSITIVE IAT (test code = 1185) Negative [facility]PO[facility] Urinalysis w/o Specific [id number] 20:29:00* Test Item Value Reference Range Interpretation Comme nts POCT PH U (test code = 3254) n/a 5-8 POCT U LEUK EST (test code = 3263) n/a Negative - Negative POCT U NIT (test code = 3262) n/a Negative - Negati ve POCT U PROT (test code = 3259) negative Negative - Negat veronica POCT U GLU (test code = 3256) negative Negative - Negati ve POCT U KETONE (test code = 3258) n/a Negative - Neg ative POCT U BLD (test code = 3257) n/a Negative - Negati ve [facility] Urinalysis w/o Specific [id number] 22:00:00* Test Item Value Reference Range Interpretation Comme nts POCT PH U (test code = 3254) N/A 5-8 POCT U LEUK EST (test code = 3263) N/A Negative - Negative POCT U NIT (test code = 3262) N/A Negative - Negati ve POCT U PROT (test code = 3259) Negative Negative - Negat veronica POCT U GLU (test code = 3256) Negative Negative - Negati ve POCT U KETONE (test code = 3258) N/A Negative - Neg ative POCT U BLD (test code = 3257) N/A Negative - Negati ve [facility] Urinalysis w/o Specific [id number] 22:00:00* Test Item Value Reference Range Interpretation Comme nts POCT PH U (test code = 3254) N/A 5-8 POCT U LEUK EST (test code = 3263) N/A Negative - Negative POCT U NIT (test code = 3262) N/A Negative - Negati ve POCT U PROT (test code = 3259) Negative Negative - Negat veronica POCT U GLU (test code = 3256) Negative Negative - Negati ve POCT U KETONE (test code = 3258) N/A Negative - Neg ative POCT U BLD (test code = 3257) N/A Negative - Negati ve [facility] Urinalysis w/o Specific [id number] 15:01:00* Test Item Value Reference Range Interpretation Comme nts POCT PH U (test code = 3254) N/A 5-8 POCT U LEUK EST (test code = 3263) N/A Negative - Negative POCT U NIT (test code = 3262) N/A Negative - Negati ve POCT U PROT (test code = 3259) Negative Negative - Negat veronica POCT U GLU (test code = 3256) Negative Negative - Negati ve POCT U KETONE (test code = 3258) N/A Negative - Neg ative POCT U BLD (test code = 3257) N/A Negative - [facility] [id number] 22:22:00* Test Item Value Reference Range Interpretation Comme nts POCT PH U (test code = 3254) n/a 5-8 POCT U LEUK EST (test code = 3263) n/a Negative - Negative POCT U NIT (test code = 3262) n/a Negative - Negati ve POCT U PROT (test code = 3259) negative Negative - Negat veronica POCT U GLU (test code = 3256) normal Negative - Negati ve POCT U KETONE (test code = 3258) n/a Negative - Neg ative POCT U BLD (test code = 3257) n/a Negative - Negati ve [facility] SPECIFIC [id number] 15:15:00* Test Item Value Reference Range Interpretation Comme nts POCT PH U (test code = 3254) n/a 5-8 POCT U LEUK EST (test code = 3263) n/a Negative - Negative POCT U NIT (test code = 3262) n/a Negative - Negati ve POCT U PROT (test code = 3259) negative Negative - Negat veronica POCT U GLU (test code = 3256) negative Negative - Negati ve POCT U KETONE (test code = 3258) n/a Negative - Neg ative POCT U BLD (test code = 3257) n/a Negative - Negati ve [facility] [id number] 15:15:00* Test Item Value Reference Range Interpretation Comme nts POCT PREG (test code = 1605) Positive On board controls acceptable with C Line (test code = 3574) Yes POCT PREG LOT # (test code = 3575) POCT PREG TEST DATE ( test code = 3576) [facility] History and Physical Notes Date/Time Note Provider Source 2023-06-22 07:22:26 TRIAGE HISTORY & PHYSICAL IDENTIFYING DATA Ayaka Carter is 28 year old, /White, 38w0d, female with MAURY 07/06/2023, by Last Menstrual Period. : 1995 Primary Care Physician: PATIENT DOES NOT HAVE A PCP CHIEF COMPLAINT Labor SROM HISTORY OF PRESENT ILLNESS Ayaka Carter is a 28 year old female, presents with SROM and in early labor +FM. No VB. No pre-eclampsia sx or other complaints. CARE: OB: Dr Arias See [facility] flow sheet for details PAST OBSTETRIC HISTORY OB History Para Term AB Living 2 1 1 1 SAB IAB Ectopic Multiple Live Births 1 # Outcome Date GA Lbr Anthony/2nd Weight Sex Delivery Anes PTL Lv 2 Current 1 Term 09/13/20 3487 g M NORMAL SPONT JEANETTE PAST MEDICAL HISTORY Problem list: Patient Active Problem List Diagnosis Date Noted Uterine contractions 06/22/2023 38 weeks gestation of 06/22/2023 Obesity (BMI 30-39.9) 04/25/2023 Limited care in second trimester 02/17/2023 High-risk in second trimester 02/17/2023 Operations: No past surgical history on file. No past medical history on file. CURRENT HEALTH STATUS Medications: Current Facility-Administered Medications Medication Dose Route Frequency Last Rate Last Admin carboprost (HEMABATE) injection 250 mcg 250 mcg Intramuscular Q2HPRN D5W-LR IV infusion 1,000 mL 1,000 mL IV Infusion TITRATE 125 mL/hr at 06/22/23 0654 Rate Verify at 06/22/23 0654 FENTanyl PF (SUBLIMAZE (PF)) injection 100 mcg 100 mcg Slow IV Push Q1HPRN lactated ringers IV infusion 500 mL 500 mL IV Infusion PRN - SEE INSTRUCTIONS 999 mL/hr at 06/22/23 0045 500 mL at 06/22/23 0045 lidocaine 1% (PF) (XYLOCAINE) injection 0.3 mL 0.3 mL Infiltration PRN - SEE INSTRUCTIONS lidocaine 1% (XYLOCAINE) 10 mg/mL (1 %) injection 50 mL 50 mL Infiltration PRN - SEE INSTRUCTIONS methylergonovine (METHERGINE) injection 0.2 mg 0.2 mg Intramuscular Q4HPRN miSOPROStoL (CYTOTEC) tablet 1,000 mcg 1,000 mcg Rectal PRN ondansetron (ZOFRAN (PF)) injection 4 mg 4 mg Slow IV Push Q6HPRN oxytocin (PITOCIN) 30 units in NS 500 mL IV infusion 600 mL/hr IV Infusion PRN oxytocin (PITOCIN) 30 units in NS 500 mL IV infusion 2-40 vita-units/min IV Infusion TITRATE 2 mL/hr at 06/22/23 0654 2 vita-units/min at 06/22/23 0654 sodium citrate-citric acid (BICITRA) 500-334 mg/5 mL solution 30 mL 30 mL Oral PRE-PROCEDURE ONCE tranexamic acid (CYKLOKAPRON) 1,000 mg in NaCl 0.9% (NS) 250 mL piggyback 1,000 mg IV Piggyback PRN Facility-Administered Medications Ordered in Other Encounters Medication Dose Route Frequency Last Rate Last Admin lidocaine-epinephrine (XYLOCAINE W/EPINEPHRINE) 1.5 %-1:200,000 injection Intradermal ONCE INTRA PROCEDURE 2 mL at 06/22/23 0138 PIB fentaNYL-ropivacaine 2 mcg/mL-0.1 % (PF) in NS 200 mL epidural infusion RTU Epidural ONCE INTRA PROCEDURE 4 mL at 06/22/23 0145 Allergies and drug reactions: Patient has no known allergies. HOME MEDICATIONS Medications Prior to Admission Medication Sig Dispense Refill Last Dose 25/iron fum/folic/dha (-1 ORAL) Take by mouth. Taking proMETHazine 25 mg tablet Take 1 tablet by mouth every 6 (six) hours as needed for Nausea and Vomiting (N/V). 20 tablet 0 Not Taking SOCIAL HISTORY Tobacco History: Social History Tobacco Use Smoking Status Never Smokeless Tobacco Never Drug History: Social History Substance and Sexual Activity Drug Use Never Alcohol History: Social History Substance and Sexual Activity Alcohol Use Not Currently FAMILY HISTORY Family History Problem Relation Age of Onset No Significant Medical Problems Mother No Significant Medical Problems Father REVIEW OF SYSTEMS General: negative Constitutional: negative Eyes: negative ENT/Mouth: negative Cardiovascular: negative Respiratory: negative Gastrointestinal:negative Genitourinary: As HPI Musculoskeletal: negative Skin/breast: negative Neurological: negative Psychiatric: negative Endocrine: negative Hemat/Lymph: negative Allergic/Immuno:none VITAL SIGNS BP: (90-135)/(47-87) Temp: [36.6 ?C (97.9 ?F)-36.9 ?C (98.5 ?F)] Temp source: Temporal Artery (06/22 0600) Pulse: [64-100] Resp: [16-18] SpO2: [95 %-100 %] Height: [157.5 cm (5' 2")] Weight: [83 kg (183 lb)] BMI (calculated): [33.47] PHYSICAL EXAMINATIONS Gen: alert and oriented, well appearing, no distress CV: RRR Resp: normal work of breathing Abd: gravid, soft, NTTP. Cephalic. EFW less than 4500 grams Ext: no calf tenderness or edema Ve:/+1 REVIEW OF LABORATORY, PATHOLOGY, AND RADIOLOGY DATA Lab results: Type & Screen HIV Hep B Syphilis Chlamydia ABO & RH Date Value Ref Range Status 06/22/2023 O POSITIVE Final No results found for: "HIVMULTIPLEX" No components found for: "HBSHBSAG" No results found for: "SYPIGG" C. trachomatis Nucleic Acid Date Value Ref Range Status 06/09/2023 Negative Negative Final IAT Date Value Ref Range Status 06/22/2023 Negative Final Varicella Rubella Glucose Group B Strep CBC VZV IgG antibody Date Value Ref Range Status 02/17/2023 Positive Negative Final Rubella screen IgG Date Value Ref Range Status 02/17/2023 Equivocal Negative Final GLUC 1 HR Date Value Ref Range Status 05/06/2023 109 (L) 120 - 170 mg/dL Final No results found for: "CGBS" HGB Date Value Ref Range Status 06/21/2023 12.0 11.6 - 15.0 g/dL Final HCT Date Value Ref Range Status 06/21/2023 35.5 (L) 35.7 - 45.2 % Final PLT Date Value Ref Range Status 06/21/2023 329 166 - 358 10*3/?L Final Placenta Accreta Screening Prior ? : No Prior Uterine Surgery?: No Placenta low lying/previa in current ? : No Screening outcome: A positive screening outcome indicates a history of prior delivery or prior uterine surgery, AND the presence of either a placenta low lying/previa or ultrasound suspicion of PASD in the current . Negative screening. Active Hospital Problems Diagnosis Date Noted Uterine contractions 06/22/2023 38 weeks gestation of 06/22/2023 Resolved Hospital Problems No resolved problems to display. Present on Admission: Uterine contractions 38 weeks gestation of ASSESSMENT AND PLAN Ayaka Carter is a 28 year old at 38w0d who presents in spontaneous labor. GBS negative. CAT 1 - Continue current intrapartum care - Anticipate vaginal delivery Zaida Ryamundo MD [facility] Procedure Notes Date/Time Note Provider Source 2023-06-22 01:48:42 Associated Order(s): Central Neuraxial Block Central Neuraxial Block Date/Time: 06/22/2023 1:48 AM Performed by: Kane Allen MD Authorized by: Kane Allen MD Patient Location: OB End Time: 06/22/2023 1:48 AM Reason for Block: OB request, Patient request, Labor analgesia, Surgical anesthesia and Post-op pain management Staff: Anesthesiologist: Kane Allen MD Performed by: anesthesiologist Preanesthetic Checklist: patient identified, IV checked, risks and benefits explained, monitors and equipment checked, timeout performed, pre-op evaluation, site marked and anesthesia consent Procedure: Type of Neuraxial: Epidural Epidural Description: DPE Sterility Prep cap, drape, gloves, hand hygiene and mask Sedation Level no sedation Prep: Betadine and patient draped Monitoring: heart rate, continuous pulse ox, heart rate / toco and NIBP Location: lumbar (1-5) Lumbar: L4-L5 Approach: midline Technique: catheter and ALLIE saline Guidance with: landmark technique} Epidural/Spinal [place] and/or Catheter: Epidural/Spinal Kit: BBun Needle Type: Tuohy Needle Gauge: 17 G Needle Length: 3.5 in (8.89 cm) Needle Insertion Depth: 5 Catheter Type: multiport Catheter Size: 19 G Catheter at Skin Depth: 10 Number of Attempts: 1 Test Dose: lidocaine 1.5% with epinephrine 1-to-200,000 and negative Dose: 3 cc Catheter Securement Method: surgical tape and Tegaderm Assessment: Block Outcome: patient tolerated procedure well Procedure Assessment: patient tolerated procedure well with no complications NFORMATICS TECHNICIAN [facility] Notes Date/Time Note Provider Source 2024-12-19 16:00:00 Images from the original note were not included. PATIENT PRESENTED WITH DENISE KIT. DRAWN AND SENT OFF. Venipuncture collection performed by clean technique on the right anticubitus. Total of 1 attempts were made. Slight pressure and a bandage/dressing were applied to the site(s). The patient experienced no complications. The following specimens were processed according to instructions and sent to [facility] laboratories per lab order on 12/19/2024 : LT BLUE SST RED LAV PPT DK GREEN (LiHep) DK GREEN (SodH) MAHMOOD DK BLUE (K2) DK BLUE (S) ACD Blood Culture NIPT/NTD 1 KIT 2/WINTERS [facility] 2024-11-20 04:41:34 Prescriptions provided Pt verbalized understanding of instructions, pt awake alert oriented, resp reg unlabored, skin w/d, color appropriate for race, moves all ext well,pt encouraged to follow up with pcp & OB. Advised to seek medical attention for new/prolonged/worsening of symptoms. No adverse reaction to meds given in ER noted upon discharge. PIV d'cd, dressing to site, catheter in tact. Awake, alert oriented, resp reg unlabored, skin w/d, pt leaving amb with steady gait, in no apparent distress. Jovana Delgado RN [facility] 2024-11-20 02:00:23 CC: vomiting blood x2 x 40 minutes ago port captain Jarrett Kilpatrick RN [facility] 2024-11-20 01:59:[address] 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 The patient reports an episode of vomiting blood, which was more severe than previous instances. The blood was not mixed with mucus. She experienced a single episode of vomiting, which was not forceful. Her last episode of vomiting occurred 4 days ago, during which she vomited yellowish substance. Approximately 40 minutes prior to this visit, she had another episode of vomiting, characterized by retching and the expulsion of food particles. Following this, she noticed the presence of blood in her vomit. She has not observed any further instances of blood in her vomit since then. She also reports mild abdominal pain. The patient is currently 6 weeks and has not undergone an ultrasound examination during this . She estimates her duration based on her sexual activity. She recalls experiencing severe vomiting during her previous , which lasted for about 3 weeks but improved in the second half of her . She was previously diagnosed with hyperemesis gravidarum and was prescribed medication for nausea, which she no longer takes. HPI Past Medical History/Immunizations: No past medical history on file. Tetanus received in last 5 years: No Allergies: No Known Allergies Past Social History: Tobacco Use Never smoked or used smokeless tobacco. Alcohol Use Not Currently. Drug Use Never. Sexual Activity Sexually active; Partners: Male; Control/Protection: None. Past Surgical History: No past surgical history on file. Review of Systems: Review of Systems Constitutional: Negative for fatigue. Respiratory: Negative for shortness of breath. Cardiovascular: Negative for chest pain. Gastrointestinal: Positive for nausea and vomiting. Genitourinary: Positive for pelvic pain. Physical Exam: Physical Exam Constitutional: No acute distress Gastrointestinal: No abdominal pain currently ED Triage Vitals [11/20/24 0202] Weight 81.2 kg (179 lb) Actual or estimated Height 1.549 m (5' 1") BP 120/69 Pulse 91 Resp 19 Temp 36.9 ?C (98.4 ?F) Temp src SpO2 100 % Measured on Physical Exam Constitutional: General: She is not in acute distress. Appearance: She is well-developed. HENT: Head: Normocephalic and atraumatic. Eyes: Pupils: Pupils are equal, round, and reactive to light. Cardiovascular: Rate and Rhythm: Normal rate. Pulmonary: Effort: Pulmonary effort is normal. Abdominal: General: There is no distension. Musculoskeletal: General: Normal range of motion. Cervical back: Normal range of motion. Skin: General: Skin is warm and dry. Neurological: Mental Status: She is alert and oriented to person, place, and time. Radiology: No orders to display Lab Results: Lab Results CBC WITH DIFF - Abnormal Result Value Ref Range WBC 15.56 (*) 4.30 - 11.10 10*3/?L RBC 3.95 3.93 - 5.25 10*6/?L HGB 11.8 11.6 - 15.0 g/dL HCT 35.2 (*) 35.7 - 45.2 % MCV 89.1 80.6 - 95.5 fL MCH 29.9 25.9 - 32.8 pg MCHC 33.5 31.6 - 35.1 g/dL RDW-SD 44.5 39.0 - 49.9 fL RDW-CV 13.6 12.0 - 15.5 % PLT 413 (*) 166 - 358 10*3/?L MPV 9.1 (*) 9.5 - 12.9 fL NRBC/100 WBC 0.0 0.0 - 10.0 /100 WBCs NRBC x10 3 <0.01 10*3/?L GRAN MAT (NEUT) % 67.7 % IMM GRAN % 0.50 % LYMPH % 23.3 % MONO % 6.7 % EOS % 1.2 % BASO % 0.6 % GRAN MAT x10 3 (ANC) 10.54 (*) 1.88 - 7.09 10*3/uL IMM GRAN x10 3 0.08 (*) 0.00 - 0.06 10*3/uL LYMPH x10 3 3.63 (*) 1.32 - 3.29 10*3/uL MONO x10 3 1.04 (*) 0.33 - 0.92 10*3/uL EOS x10 3 0.18 0.03 - 0.39 10*3/uL BASO x10 3 0.09 (*) 0.01 - 0.07 10*3/uL URINALYSIS - Abnormal APPEARANCE Cloudy (*) Clear COLOR Yellow Yellow PH 7.0 4.8 - 8.0 SP GRAVITY 1.019 1.003 - 1.030 GLU U QUAL Normal Normal BLOOD Negative Negative KETONES Negative Negative PROTEIN Negative Negative UROBILIN Normal Normal BILIRUBIN Negative Negative NITRITE Negative Negative LEUK [place] 250/uL (*) Negative RBC/HPF 6 (*) 0 - 3 HPF WBC/HPF 6 (*) 0 - 5 HPF BACTERIA Few (*) Negative MUCOUS Slight (*) Negative LPF AMORPHOUS Rare Rare HPF SQ EPITH 9 HPF HYAL CAST 1 <=2 LPF POCT TEST - Normal POCT PREG Positive On board controls acceptable with C Line Yes POCT PREG LOT # [id number] POCT PREG TEST DATE 04-03-2026 COMP. METABOLIC PANEL (82497) NA 136 135 - 145 mmol/L K 3.7 3.5 - 5.0 mmol/L CL 104 98 - 108 mmol/L CO2 TOTAL 24 23 - 31 mmol/L AGAP 8 2 - 16 BUN 7 7 - 23 mg/dL GLUCOSE 82 70 - 110 mg/dL CREATININE 0.50 0.50 - 1.04 mg/dL TOTAL BILI 0.2 0.1 - 1.1 mg/dL CALCIUM 8.9 8.6 - 10.6 mg/dL T PROTEIN 7.1 6.3 - 8.2 g/dL ALBUMIN 4.0 3.5 - 5.0 g/dL ALK PHOS 57 34 - 122 U/L ALTv 13 5 - 35 U/L AST(SGOT) 17 13 - 40 U/L eGFR 132.0 mL/min/1.73m2 TOTAL BETA HCG ASSAY BETA HCG 74,412.00 Non- female and male patients: <5 mIU/mL Study Date and Time: 2024-11-20 03:50 Study Author: Boby Davidson OB - TAUS: Indications: Indications for this focused Ultrasound:: Positive Hcg Other (answer below): N/A Views Obtained: The following structures were examined from a transabdominal approach: Transverse uterus and Vesicouterine/Rectouterine Spaces, Sagittal uterus and Vesicouterine/Rectouterine Spaces Other views: N/A Uterine Findings: Uterus: Antiverted Vesicouterine/Rectouterine spaces: No fluid Intrauterine : Present Findings visualized to confirm IUP: heart activity FHR (bpm): 164 Other: N/A Right Adnexa: The right adnexa was visualized with the following findings:: N/A Other: N/A Spectral doppler flow: N/A Color Doppler flow: N/A Other right adnexal findings: N/A Left Adnexa: The left adnexa was visualized with the following findings:: N/A Other: N/A Spectral doppler flow: N/A Color Doppler flow: N/A Interpretation: Images above were diagnostic for the following findings: Live intrauterine Other (answer below): N/A Other uterine or adnexal interpretation: N/A Confirmatory Study: What confirmatory study was performed during ED patient evaluation?: No additional imaging ordered Confirmatory study findings/comments: N/A Signed by Boby Davidson on 2024-11-20 04:13 EKG: If EKG completed, see Procedure Note. Orders and Treatments: Orders Placed This Encounter Procedures POCUS OB US ABD Limited Cbc with Diff Comp. Metabolic Panel (99675) POCT Test Total Beta HCG Assay Urinalysis Orders Placed This Encounter Medications cephALEXin 500 mg capsule maalox/diphenhydrAMINE:lid ocaine2 %viscous 1:1:1: suspension (COMPOUNDED) pantoprazole (PROTONIX) 80 mg in NaCl 0.9% (NS) 20 mL syringe metoclopramide HCl 10 mg tablet First Provider Eval: ED Events None ED COURSE Diagnosis/Impression as of 11/20/24 0425 Vomiting Hyperemesis Xenia-Pan syndrome Urinary tract infection in mother during first trimester of Results Laboratory Studies Leukocytosis of 15.5. UA demonstrating 250, leuk esterase, WBCs of 6, bacteria. Renal function preserved. Beta hCG 74,000. Imaging Bedside [id number] ultrasound, transabdominal, showed heart tones and single IUP. heart rate is 164, crown-rump length 9 weeks 2 days. Procedures: Procedures MDM: Assessment & Plan Initial Assessment: Vomiting blood, likely due to hyperemesis gravidarum. Possible urinary tract infection. Differential Diagnosis: - Xenia-Pan syndrome: Vomiting blood, likely due to hyperemesis gravidarum. Reglan for symptomatic control. Follow up with [facility]. - Possible urinary tract infection (UTI): Labs show leukocytosis of 15.5, UA demonstrating 250 leuk esterase, WBCs of 6, and bacteria. Keflex prescribed. ED Course: - Labs reviewed: Leukocytosis of 15.5, UA demonstrating 250 leuk esterase, WBCs of 6, bacteria. - Renal function preserved. - Beta hCG 74,000. - Bedside [id number] ultrasound, transabdominal performed by ri. heart tones and single IUP observed. heart rate 164, crown-rump length 9 weeks 2 days. Final Assessment: Vomiting blood consistent with Xenia-Pan syndrome due to hyperemesis gravidarum. Possible UTI based on lab results. Ultrasound confirms single IUP with heart tones. Clinical Impression: - Xenia-Pan syndrome - Hyperemesis gravidarum - Possible urinary tract infection (UTI) Disposition: - Follow-Up: [facility] for further evaluation and management. Return precautions if symptoms worsen. Patient Education: Return precautions given if symptoms worsen. MDM Components Evaluation: - Number of Differential Diagnoses or Management Options: Xenia-Pan syndrome, Possible urinary tract infection (UTI) - Amount and Complexity of Data Reviewed: Labs reviewed, Bedside [id number] ultrasound - Risk of Complication and Morbidity or Mortality: Moderate risk due to and potential complications from UTI and vomiting blood. PROCEDURE Indication: Evaluation of status and health. Procedure: A bedside [id number] transabdominal ultrasound was performed, revealing heart tones and a single intrauterine (IUP). The heart rate is 164, and the crown-rump length corresponds to 9 weeks and 2 days. Medical Decision Making Amount and/or Complexity of Data Reviewed Labs: ordered. Risk Prescription drug management. Flowsheet Documentation: Scoring Tools: No data recorded Disposition/Condition: ED Disposition ED Disposition Discharge Condition Stable Comment -- Discharge Medications: Patient's Medications START taking these medications CEPHALEXIN 500 MG CAPSULE Take 1 capsule by mouth 4 times daily for 5 days. METOCLOPRAMIDE HCL 10 MG TABLET Take 1 tablet by mouth every 6 hours. CONTINUE taking these medications which have NOT CHANGED DOCUSATE 100 MG CAPSULE Take 2 capsules by mouth once daily as needed for Constipation. FERROUS SULFATE 325 MG (65 MG IRON) TABLET Take 1 tablet by mouth in the morning. IBUPROFEN 600 MG TABLET Take 1 tablet by mouth every 6 (six) hours as needed (Pain). Take with food or milk. VITAMIN W/FA TABLET Take 1 tablet by mouth in the morning. START taking Modified Medications as Prescribed No medications on file STOP taking these medications No medications on file Follow-up: Electronically signed by: Boby Davidson DO 11/20/245 [facility] 2023-06-23 13:16:20 Patient: Ayaka Carter Procedure Summary Date: 06/22/23 Room / Location: Anesthesia Start: 102 Anesthesia Stop: 1500 Procedure: CENTRAL NEURAXIAL BLOCK Diagnosis: Scheduled Providers: Responsible Provider: Bassem Jain MD Anesthesia Type: Epidural ASA Status: 2 Anesthesia Type: Epidural Last vitals BP Temp Pulse Resp SpO2 There were no known notable events for this encounter. Anesthesia Post Evaluation Patient location during evaluation: bedside Patient participation: complete - patient participated Level of consciousness: awake and alert Pain score: 0 Pain management: satisfactory to patient Multimodal analgesia pain management approach Airway patency: patent Cardiovascular status: acceptable and blood pressure returned to baseline Respiratory status: acceptable Hydration status: acceptable [facility] AN-ANESTHESIOLOGY ANESTHESIOLOGIST [facility] 2023-06-23 10:06:28 Problem: Falls, Risk of Goal: Absence of falls 06/23/2023 1006 by Emely Mg RN Outcome: Resolved 06/23/2023 1002 by Emely Mg RN Outcome: Adequate for discharge Problem: Discharge Planning - Goal: Adequate for discharge 06/23/2023 1006 by Emely Mg RN Outcome: Resolved 06/23/2023 1002 by Emely Mg RN Outcome: Adequate for discharge Goal: Mood stable 06/23/2023 1006 by Emely Mg RN Outcome: Resolved 06/23/2023 1002 by Emely Mg RN Outcome: Adequate for discharge Problem: Bleeding, Risk of Goal: Absence of active bleeding 06/23/2023 1006 by Emely Mg RN Outcome: Resolved 06/23/2023 1002 by Emely Mg RN Outcome: Adequate for discharge NFORMATICS TECHNICIAN Emely Mg RN [facility] 2023-06-23 10:02:10 Problem: Falls, Risk of Goal: Absence of falls Outcome: Adequate for discharge Problem: Discharge Planning - Goal: Adequate for discharge Outcome: Adequate for discharge Goal: Mood stable Outcome: Adequate for discharge Problem: Bleeding, Risk of Goal: Absence of active bleeding Outcome: Adequate for discharge [facility] 2023-06-22 19:52:33 Problem: Falls, Risk of Goal: Absence of falls Outcome: Progressing as expected Problem: Discharge Planning - Goal: Adequate for discharge Outcome: Progressing as expected Goal: Mood stable Outcome: Progressing as expected Problem: Bleeding, Risk of Goal: Absence of active bleeding Outcome: Progressing as expected YAS Diggs RN [facility] 2023-06-22 16:41:07 Problem: Falls, Risk of Goal: Absence of falls Outcome: Progressing as expected Problem: Discharge Planning - Goal: Adequate for discharge Outcome: Progressing as expected Goal: Mood stable Outcome: Progressing as expected Problem: Bleeding, Risk of Goal: Absence of active bleeding Outcome: Progressing as expected YAS Salas RN [facility] 2023-06-22 11:24:00 This note was copied from a baby's chart. Evaluation Situation Initial visit Background Baby Girl is 4 hours old, born weighing 2860g. Gestational Age: 38w0d at INFANT FEEDING STATUS Exclusively MATERNAL STATUS Hand expressing Assessment, Recommendations, Education Assisted mom with positioning and asymmetrical latch technique in the football hold. Initially the baby was latched shallow, but after giving more neck and back support she was able to achieve a deeper latch. Encouraged mom to stimulate the baby to keep the baby engaged in feeding and actively sucking while at the breast. Mom denied nipple pain with feeding. The baby suckled in coordinated bursts with audible swallows. Mom's nipple was rounded upon release. I discussed with mom the importance of achieving a deep latch to help transfer more milk and to help prevent nipple damage. I discussed with mom the stages of milk production and when she can expect to see or feel an increase in her milk supply. Mom was encouraged to feed infant from the breast at least 8-12 times ad ay when feeding cues are observed. I demonstrated feeding cues to mom. education provided. All questions answered. Mom does not have any other questions or concerns at this time. Mom instructed on how to contact Manufacturing Shift Supervisor for assistance with feedings or to answer questions while in the hospital. Mom verbalized understanding. JAY Laird, RN, IBCLC [facility] Rosie Tsai RN [facility] 2023-06-22 11:06:20 Problem: Intrapartum process (including labor pain) Goal: Absence of or reduction of complications of labor Outcome: Resolved Goal: Able to cope with pain Outcome: Resolved Goal: Adequate to move to next level of care Outcome: Resolved Goal: Reduction in pain sensation Outcome: Resolved [facility] 2023-06-22 08:43:12 DELIVERY BY SPONTANEOUS VAGINAL DELIVERY Delivery Date: 06/22/2023 Delivery Time: 8:08 AM Delivery Summary The patient was admitted to the Labor & Delivery unit for labor and SROM at 38 weeks Delivery Physician: Zaida Raymundo MD OB Faculty: Zaida Raymundo MD Intrapartum Anesthesia/Analgesia: Epidural Mode of Delivery: Delivery of turcios fetus with cephalic presentation Fetus Spontaneous vaginal delivery of head with cephalic position, occipital anterior. As the head crowned and distended the perineum, no episiotomy was performed. A blue towel was used to protect the perineum as the head crowned and delivered. The other hand was used to exert pressure on the occiput to control the delivery of the head. The perineum was pushed with a towel-draped hand as the head and mouth was delivered over the perineum. The head was allowed to rotate externally to achieve natural body posture. Examination of neck revealed no umbilical cord. The shoulder was delivered by gentle downward traction applied to head and downward traction for the delivery of anterior shoulder. This was followed by upward traction with delivery of posterior shoulder and body. After the delivery of infant, bulb suction was performed from ororpharynx and nostril with removal of thin meconium. A normal, female was delivered. The umbilical cord was double clamped, cut and the was handed off the field to the circulating nurse Placenta Placenta was delivered spontaneously while the abdominal hand lifted the uterus cephalad and other hand keeping the umbilical cord slightly taut. Laceration 2nd degree Laceration Repair: 2nd Degree - Second degree laceration was repaired. Suture was used with continuous locking fashion to close the vaginal mucosa and submucosa. The hymenal ring is reapproximated and tied with the same suture. The fascia and muscle of perineum was reapproximated with interrupted suturing from forchett toward inferior edge. Continuous subcutaneous stitch was used to reapproximate the perineal skin with the same suture. Fourth Stage Fourth stage of labor was managed by uterine massage with abdominal hand and infusion 30 units of pitocin mixed with intravenous fluid. EBL: See QBL Complications: None Weight: 2860 g 1 Minute 5 Minute 10 Minute Totals: 8 9 Zaida Raymundo MD [facility] 2023-06-22 01:49:31 Name/ MRN / Age / Gender: Ayaka Carter, [id number] 28 year old female BMI: Estimated body mass index is 33.47 kg/m? as calculated from the following: Height as of an earlier encounter on 06/21/23: 1.575 m (5' 2"). Weight as of an earlier encounter on 06/21/23: 83 kg (183 lb). Allergies: Patient has no known allergies. Last Vitals: BP Readings from Last 1 Encounters: 06/22/23 102/85 Pulse Readings from Last 1 Encounters: 06/22/23 78 SpO2 Readings from Last 1 Encounters: 06/22/23 99% Date of Surgery: 06/22/2023 Surgeon: * No surgeons listed * Procedure: CENTRAL NEURAXIAL BLOCK OR Location: [place] [facility] OUT OF OR - OR LOCATION Anesthesia Preop Eval (physical exam) Anesthesia Preop: [id number] NPO Status Not Verified Anesthesia History (-) Hx of anesthetic complications Previous Anesthetics/Airways Cardiovascular Negative Cardiac ROS Pulmonary Negative Pulmonary ROS Neuro/Musculoskeletal Negative Neuro/Musculosketal ROS GI/Hepatic Negative GI/Hepatic ROS Hematology Negative Hematology ROS Comments: CBCWBC (10*3/?L) Date Value 06/21/2023 18.75 (H) RBC (10*6/?L) Date Value 06/21/2023 3.84 (L) PLT (10*3/?L) Date Value 06/21/2023 329 HGB (g/dL) Date Value 06/21/2023 12.0 HCT (%) Date Value 06/21/2023 35.5 (L) Renal Negative Renal ROS Skin Negative Skin ROS Endo/Other Negative Endo/Other ROS Other SWORD SWALLOWER Negative SWORD SWALLOWER ROS Pediatric Preoperative Medication Instructions Continue taking all prescribed medications except: MARTY inhibitors, ARBs, diuretics, all oral diabetes medications Anticoagulant Therapy: Defer to surgeons Insulin: Take 1/2 dose the night prior to surgery. Hold on DOS. Phentermine: Alert [facility] anesthesiologist SGLT2 Inhibitors: "gliflozins" to be held for 3 days prior to elective surgeries GLP1 Agonosit: stop 7 days prior to surgery MAC Cases: Continue taking MARTY inhibitors and ARBs ASA Classification ASA: 2 Current Medications: No outpatient medications have been marked as taking for the 06/21/23 encounter (Hospital Encounter). Previous Surgeries: No past surgical history on file. Anesthesia Physical Exam General no apparent distress and alert and oriented x 3 Neuro/Psych neurological Nonfocal Dental no notable dental hx Abdominal GI exam normal (+) gravid Airway Mallampati score:III TM distance:> 5 cm Neck ROM: full Mouth opening:normal Extremity Normal extremity Pulmonary pulmonary exam normal and bilateral clear to auscultation Other Cardiovascular cardiovascular exam normalRhythm:Regular Rate: Normal Anesthesia Plan ASA Status: 2 Plan discussed during pre-op evaluation: General, Epidural and Spinal Anesthetic plan on DOS: Epidural Anesthesia plan discussed with: patient or freight representative Post-Operative Analgesia: routine analgesia & antiemetics Recovery Plan: LDR Additional comments: YAS AN-ANESTHESIOLOGY ANESTHESIOLOGIST [facility] 2023-06-21 23:39:32 Problem: Intrapartum process (including labor pain) Goal: Absence of or reduction of complications of labor Outcome: Progressing as expected Goal: Able to cope with pain Outcome: Progressing as expected Goal: Adequate to move to next level of care Outcome: Progressing as expected Goal: Reduction in pain sensation Outcome: Progressing as expected Problem: Falls, Risk of Goal: Absence of falls Outcome: Progressing as expected YAS Ledbetter RN [facility] 2023-06-21 22:52:00 Contraction 2 mins apart and water broke just port captain, pt taken to L&D via wheelchair by ER nurse. Pt report called to BRANDY Jewell YAS Ibarra RN [facility] 2023-06-21 16:15:00 ROUTINE VISIT 06/21/2023 3:02 PM CHERYL Carter is a 28 year old at 37w6d who presents for routine visit. She has complaints today: loss of fluid, vaginal bleeding, and signs or symptoms of pre-eclampsia. Good movement. Occasional contractions. NV x 24 hours. Ate out at [employer] night prior. Today able to hold down water. Hungry. Went to l&D and received IV fluids, normal labs and cervix closed OBJECTIVE BP 127/76 (BP Location: Right arm, Patient Position: Sitting, BP CUFF SIZE: Adult Medium) | Pulse 88 | Temp 36.6 ?C (97.9 ?F) (Oral) | Resp 16 | Ht 5' 2" (1.575 m) | Wt 183 lb (83 kg) | LMP 09/29/2022 (Exact Date) | BMI 33.47 kg/m? Physical Exam: Gen: A&Ox3, NAD Abd: Soft, gravid, NTTP, ND, no rebound or guarding Ext: No calf tenderness : deferred ASSESSMENT: Ayaka Carter is a 28 year old at 37w6d who presents for routine visit. Patient Active Problem List Diagnosis Limited care in second trimester High-risk in second trimester Obesity (BMI 30-39.9) PLAN 1. 38 weeks gestation of - POCT Urinalysis w/o Specific [place] 2. High-risk in third trimester 3. Nausea/vomiting in --Recommend BRAT diet --call if fever develops [facility] 2023-06-21 12:32:01 Patient coming in around 2. Taylor Red RN 06/21/2023 12:32 PM NFORMATICS TECHNICIAN Taylor Red RN [facility] 2023-06-21 11:24:40 Spoke with patient, states that she went to ER yesterday for nausea and abd pain (contractions). Was given medication in hospital for nausea and fluids. Patient states that she is still having nausea with no relief, not able to keep anything down. Unsure if she is having contractions, feeling sore all over. Denies vaginal bleeding or loss of fluid. Good movement. Patient requesting to come in sooner for appt today. Informed patient I will see if we can work her in sooner. NFORMATICS TECHNICIAN [facility] 2023-06-21 11:20:12 Patient is calling stating she went to the ER yesterday, she is currently 37 weeks . She is not able to keep anything down and is complaining of contractions. Nurse notified. YAS Guzman [facility] 2023-06-21 01:27:14 Pt arrived ambulatory with complaints of abdominal pain and vomiting. Pt is 37 weeks Pt sees Azalea Do Reports good movement Report to BRANDY [place] Pt transported to L&D via WC with ED PCT YAS Tatum RN [facility] 2023-06-10 08:50:47 Name and verified. Pt wanted to make sure she did not have pre-eclampsia because her OV stated that she had s/s. Pt denied vision changes, head ache, RUQ abd pain, vomiting, and swelling. I explained to pt that I will speak with Dr. Lama to clarify note. Verbalized understanding. ROSA SURESH RN 06/10/2023 8:[address] Lama- there was an error on OV. Note updated. No s/s of pre-eclampsia. Pt advised and also if s/s appear- then needs to be seen. Verbalized understanding. ROSA SURESH RN 06/10/2023 8:58 AM YAS Suresh RN [facility] 2023-06-09 16:00:00 ROUTINE VISIT 06/09/2023 4:03 PM CHERYL Carter is a 28 year old at 36w1d who presents for routine visit. She has pressure complaints today; Denies loss of fluid, vaginal bleeding, and signs or symptoms of pre-eclampsia. Good movement. Occasional contractions OBJECTIVE BP 117/78 | Pulse 101 | Resp 18 | Ht 5' 2" (1.575 m) | Wt 187 lb (84.8 kg) | LMP 09/29/2022 (Exact Date) | BMI 34.20 kg/m? Physical Exam: Gen: A&Ox3, NAD Pulm: No labored breathing Abd: Soft, gravid, NTTP, ND, no rebound or guarding Ext: No calf tenderness : cl/long-3 vertex on US ASSESSMENT: Ayaka Carter is a 28 year old at 36w1d who presents for routine visit. Patient Active Problem List Diagnosis Limited care in second trimester High-risk in second trimester Obesity (BMI 30-39.9) PLAN 1. 36 weeks gestation of - Cbc with Diff; Future - Group B Streptococcus By PCR - Gc & Chlamydia Amplified Assay - Trichomonas Amplified Assay - POCT Urinalysis w/o Specific [place] - Urine Drug (Immunoassay) - Comprehensive Drug Screen; Future - Urine Drug (Immunoassay) - Comprehensive Drug Screen 2. High-risk in third trimester [facility] 2023-05-26 09:00:00 ROUTINE VISIT 05/26/2023 9:31 AM SUBJECTIVE Ayaka Carter is a 28 year old at 34w1d who presents for routine visit. She has sleeping problems, baby very active at night complaints today: loss of fluid, vaginal bleeding, and signs or symptoms of pre-eclampsia. Good movement. Occasional contractions. OBJECTIVE BP 121/86 | Pulse 103 | Resp 18 | Ht 5' 2" (1.575 m) | Wt 187 lb (84.8 kg) | LMP 09/29/2022 (Exact Date) | BMI 34.20 kg/m? Physical Exam: Gen: A&Ox3, NAD Abd: Soft, gravid, NTTP, ND, no rebound or guarding Ext: No calf tenderness : deferred ASSESSMENT: Ayaka Carter is a 28 year old at 34w1d who presents for routine visit. Patient Active Problem List Diagnosis Limited care in second trimester High-risk in second trimester Obesity (BMI 30-39.9) PLAN 1. High-risk in third trimester 2. 34 weeks gestation of - POCT Urinalysis w/o Specific [place] [facility] 2023-05-06 10:15:00 Given 50gm fruit punch glucola. Finished at 1042. [facility] 2023-05-06 10:15:00 Images from the original note were not included. Venipuncture collection performed by clean technique on the left anticubitus. Total of 1 attempts were made. Slight pressure and a bandage/dressing were applied to the site(s). The patient experienced no complications. The following specimens were processed according to instructions and sent to [facility] laboratories per lab order on 05/06/2023 : LT BLUE SST RED LAV PPT DK GREEN (LiHep) DK GREEN (SodH) MAHMOOD DK BLUE (K2) DK BLUE (S) ACD Blood Culture NIPT/NTD [facility]
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
[2024-12-23 05:59] VITALS: BP 132/82; TEMP 98.1; O2SAT 100
== END 2024-12-22 22:22 | disposition home or self-care (01) ==
LOC: ER 20:44
DX: O26.891 Other specified pregnancy related conditions, first trimester (principal); R10.31 Right lower quadrant pain; V49.50XA Passenger injured in collision with unspecified motor vehicles in traffic accident, initial encounter; Z3A.12 12 weeks gestation of pregnancy
CPT/HCPCS: 76815; 99282